=== PATIENT | male | born 1970 | race Caucasian/White ===

== ENCOUNTER 2024-01-10 12:48 | Inpatient (IN) ==
--- NOTE | 2024-01-10 13:01 | Emergency Department Note ---
Impression & Plan Complete heart block, Abnormal ECG, Hyperbilirubinemia ED Provider Note NAME: GISELE LOPEZ AGE: 53 SEX: M : 1970 ARRIVES VIA: Walk-In INFORMANT: Patient, Dr. Sanchez ED PROVIDER(S): Tyrell Gilliland MD CHIEF COMPLAINT: Outpatient referral, complete heart block MEDICAL DECISION MAKING: Patient presents due to concern for complete heart block and was an outpatient referral. IV was established and blood work was obtained. P waves not corresponding to QRS complexes concerning for third-degree heart block. Patient did have pads placed as a precaution. Patient's blood work shows a normal white count H&H and platelet count. The patient's kidney function is unremarkable. Bilirubin of 1.7. No priors for comparison. TSH is normal. Lyme negative. I did inform the patient the findings I did speak with Dr. Dela Cruz with [facility] as well as with Cecilia Reyes PA-C with Dr. Rigo Fabian inpatient medicine service. Patient was admitted Discussion w/ other healthcare providers: Dr. Laura Fabian cardiology Dr. Jose De Jesus [facility] cardiology Shamar Reyes PA-C and Dr. Rigo [facility]ian inpatient service Prior /Outside records reviewed: None Differential diagnosis: Benign positional vertigo, dehydration, hypovolemia, anemia, infection, hypoglycemia, electrolyte abnormalities, arrhythmia, tox among others were considered. Diagnostics, as interpreted by me: ECG: Likely third-degree heart block, P waves not corresponding to each QRS complex, ventricular rate of 48 with a normal axis no ST elevations T wave inversion in lead III. Cardiac monitoring: An order was placed for continuous cardiac monitoring. The monitor shows a rate of 45 with regular rhythm. Patient was placed on pulse oximetry Medical decision rules: None Imaging studies: I informally interpreted the patient's chest x-ray does not show obvious pneumonia or pneumothorax with formal report to follow. HPI: Patient presents due to concern for complete heart block. The patient reportedly had an outpatient EKG that was completed in the preoperative setting. This was read by Dr. Sanchez and then called the patient and advised him to present to the emergency department. The patient does not take any medications and denies any symptoms. States that he does workout regularly and does not have any issues of lightheadedness dizziness or palpitations. He does report that his father did have a pacemaker placed at an older age. He denies any recent tick bites or formal diagnosis of Lyme's but states that he used to run outdoors a fair amount but is not done that in about 2 years time to where he found any sort of ticks on him. Patient denies any chest pains or shortness of breath no nausea vomiting. Social alcohol use but denies any tobacco or drug use. Dr. Rangel did make a phone call to me to make me aware of the abnormal outpatient EKG and that he was referring him to the emergency department. PAST MEDICAL HISTORY: See Below PAST SURGICAL HISTORY: See Below SOCIAL HISTORY: See Below HOME MEDICATIONS: See Below ALLERGIES: See Below VITALS: See Below PHYSICAL EXAMINATION: GENERAL: NAD, non-toxic. EYE EXAM: Normal conjunctiva. PERRL, no anisocoria and EOM's grossly intact w/o pain. OROPHARYNX: Moist mucus membranes, grossly normal dentition. NECK: Trachea midline, no stridor. LUNGS: Clear to auscultation. Normal chest wall mechanics. HEART: Bradycardic, no MRG. ABDOMEN: Abdomen soft, non-tender, no masses, no rebound or guarding. BACK: No CVA TTP. SKIN: No rashes and no bruising. UPPER EXTREMITIES: Upper extremities are grossly normal. LOWER EXTREMITIES: Grossly normal, no edema. NEURO EXAM: A&O x3, cranial nerves II-XII grossly intact, normal speech, moves all 4 extremities. Past Med/Surg History Problem List (Updated 01/10/24 @ 19:03 by Tyrell Gilliland MD) Hyperbilirubinemia (Acute) Abnormal ECG (Acute) Appendicolith Complete heart block (Acute) Surgical History Hx of colonoscopy Hx of vasectomy Social History Smoking Status: Never smoker Second Hand Exposure: No; Do You Dip or Chew Tobacco: No; Tobacco Cessation Education Requested by Patient: No Hx Alcohol Use: No Hx Substance Use: No Preferred Language: [place] [employer] Team Member Required: No Beliefs That Will Affect Care: None Current Living Situation: Spouse Current Living Situation Comment: at home with Other Information That Helps Us Care for You: No Feels Safe at Home: Yes Safety Concerns: Feels Safe At This Time Assistive Devices: None Allergies Allergies Allergy/AdvReac Type Severity Reaction Status Date / Time No Known Allergies Allergy Unknown Verified 09/10/03 16:34 Home Meds Home Medications Medication Instructions Recorded Confirmed Fish Oil 1 cap PO DIRECTED 01/10/24 01/10/24 Results & Data (ED) Vital Signs Vital Signs - 24 hr 01/10/24 12:57 01/10/24 13:12 01/10/24 13:32 Temperature 36.5 C Temperature Source Temporal Artery Scan Pulse Rate 56 L 50 L Pulse Rate [Apical] Respiratory Rate 20 Blood Pressure 161/97 H Blood Pressure [Right Arm] Blood Pressure Mean 118 Blood Pressure Mean [Right Arm] Pulse Oximetry 93 98 Oxygen Delivery Method Room Air Room Air Sepsis Recent Fever Within 48 Hours No Sepsis New/Unexplained Change in Mental Status N/A Sepsis Action Taken by Nursing No Action Required 01/10/24 13:38 Temperature Temperature Source Pulse Rate Pulse Rate [Apical] 51 L Respiratory Rate 22 Blood Pressure Blood Pressure [Right Arm] 134/98 Blood Pressure Mean Blood Pressure Mean [Right Arm] 110 Pulse Oximetry 96 Oxygen Delivery Method Room Air Sepsis Recent Fever Within 48 Hours Sepsis New/Unexplained Change in Mental Status Sepsis Action Taken by Detention Medications Current Medication List: was personally reviewed by me Laboratory Data Attestation: I reviewed the patient's lab results. 01/10/24 13:11 01/10/24 13:11 Lab Results 01/10/24 Range/Units 13:11 WBC 8.94 (4.8-10.8) K/ul RBC 4.90 (4.70-6.10) M/uL Hgb 16.6 (14.0-18.0) g/dl Hct 46.8 (42.0-52.0) % MCV 95.5 (80.0-100.0) fL MCH 33.9 (25.0-34.0) pg MCHC 35.5 (32.0-36.0) g/dL RDW Std Deviation 43.0 (36.4-46.3) fL RDW Coeff of Paulette 12.3 (11.5-14.5) % Plt Count 267 (130-400) K/uL MPV 10.3 (9.4-12.4) fL Immature Gran % (Auto) 0.2 % Neut % (Auto) 72.5 % Lymph % (Auto) 12.3 % [place] % (Auto) 10.7 % Eos % (Auto) 3.5 % Baso % (Auto) 0.8 % Neut # (Auto) 6.48 (1.40-6.50) K/uL Lymph # (Auto) 1.10 L (1.20-3.40) K/uL [place] # (Auto) 0.96 H (0.11-0.59) K/uL Eos # (Auto) 0.31 (0.00-0.50) K/uL Baso # (Auto) 0.07 (0.00-0.20) K/uL Immature Gran # (Auto) 0.02 (0.01-0.20) K/uL PT 11.2 (9.0-12.0) Seconds INR 1.0 (0.9-1.1) APTT 27 (21-31) Seconds PTT Ratio 1.0 Sodium 138 (136-145) mmol/L Potassium 4.2 (3.5-5.1) mmol/L Chloride 101 (98-107) mmol/L Carbon Dioxide 29 (21-32) mmol/L Anion Gap 8 (3-11) BUN 15 (6-23) mg/dl Creatinine 1.16 (0.6-1.4) mg/dl Est Cr Clr Drug Dosing 88.0 ml/min eGFR 75.31 BUN/Creatinine Ratio 12.9 (10-20) Glucose 115 H (70-99(Fasting)) mg/dl Calcium 9.6 (8.6-10.3) mg/dl Magnesium 1.7 (1.7-2.4) mg/dl Total Bilirubin 1.7 H (0.2-1.0) mg/dl AST 22 (13-39) U/L ALT 19 (7-52) U/L Alkaline Phosphatase 52 (34-104) U/L Troponin I High Sens 12.6 (0-20) pg/ml Total Protein 6.9 (6.0-8.3) gm/dl Albumin 4.3 (3.4-5.0) gm/dl Globulin 2.6 (2.5-4.0) gm/dl Albumin/Globulin Ratio 1.7 (0.9-2) TSH 1.645 (0.300-4.500) uIu/ml Lyme Disease Screen Negative (Negative) Imaging Data Radiologist's Impression: Chest X-Ray 01/10/24 13:01 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 No pneumothorax, pleural effusion or lobar airspace consolidation. No overt pulmonary edema. IMPRESSION: Cardiomegaly without acute process of the chest. ACT 112: Negative or not required by law. The above report was generated using voice recognition software. It may contain grammatical, syntax or spelling errors. Electronically signed by: Ray Solo M.D. 01/10/2024 1:16 PM Discharge Plan Visit Data Chief Complaint: Abnormal Labs/Diagnostic Testing Stated Complaint: ABN EKG, ED Provider: Tyrell Gilliland Discharge Problem: Complete heart block, Abnormal ECG, Hyperbilirubinemia Patient Disposition: Admitted As Inpatient Discharge Instructions Interventions: ED Discharge Assessment Last Done: 01/10/24 15:04
--- NOTE | 2024-01-10 13:18 | XRay Report ---
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 No pneumothorax, pleural effusion or lobar airspace consolidat ion. No overt pulmonary edema. IMPRESSION: Cardiomegaly without acute process of the chest. ACT 112: Negative or not required by law. The above report was generated using voice recognition software. It may contain grammatical, syntax o r spelling errors. Electronically signed by: Ray Solo M.D. 01/10/2024 1:16 PM
[2024-01-10 13:38] LABS: Basophils # (auto) 0.07 K/uL (0.00-0.20); Basophils % (auto) 0.8 %; Eosinophils # (auto) 0.31 K/uL (0.00-0.50); Eosinophils % (auto) 3.5 %; Hematocrit (blood only) 46.8 % (42.0-52.0); Hemoglobin 16.6 g/dl (14.0-18.0); Immature Granulocytes # (auto) 0.02 K/uL (0.01-0.20); Immature Granulocytes % (auto) 0.2 %; Lymphocytes % (auto) 12.3 %; Mean Corpuscular Hemoglobin 33.9 pg (25.0-34.0); Mean Corpuscular Hgb Conc 35.5 g/dL (32.0-36.0); Mean Corpuscular Volume 95.5 fL (80.0-100.0); Mean Platelet Volume 10.3 fL (9.4-12.4); Monocytes # (auto) 0.96 K/uL (0.11-0.59); Monocytes % (auto) 10.7 %; Neutrophils # (auto) 6.48 K/uL (1.40-6.50); Neutrophils % (auto) 72.5 %; Platelet Count 267 K/uL (130-400); RDW Coefficient of Variation 12.3 % (11.5-14.5); White Blood Count 8.94 K/ul (4.8-10.8)
[2024-01-10 14:02] LABS: Albumin Globulin Ratio 1.7 (0.9-2); Albumin Level 4.3 gm/dl (3.4-5.0); BUN Creatinine Ratio 12.9 (10-20); Bilirubin,Total 1.7 mg/dl (0.2-1.0); Calcium 9.6 mg/dl (8.6-10.3); Globulin 2.6 gm/dl (2.5-4.0); Magnesium 1.7 mg/dl (1.7-2.4); Potassium 4.2 mmol/L (3.5-5.1); Total Protein 6.9 gm/dl (6.0-8.3)
[2024-01-10 14:05] LABS: Troponin I High Sensitivity 12.6 pg/ml (0-20)
[2024-01-10 14:06] LABS: Partial Thromboplastin Time 27 Seconds (21-31); Prothrombin Time 11.2 Seconds (9.0-12.0)
--- NOTE | 2024-01-10 14:07 | Cardiology Consultation ---
Date of Consultation January 10, 2024 Assessment & Plan (1) Complete heart block: Plan Patient is a 53-year-old male who presented routinely for EKG prior to planned surgery. Study demonstrated third-degree AV block with complete A-V dissociation. Left ventricular escape rhythm with left bundle branch block configuration at 45 to 50 bpm Discussed findings in detail with patient Echocardiogram pending Will likely require dual-chamber pacemaker Electrophysiology contacted History of Present Illness Reason for Consultation: Third-degree heart block, left bundle branch block Requesting Physician: Dr. Sierra History of Present Illness Patient is a 53-year-old male without prior cardiac history. Generally healthy. Only recent complaints is right abdominal and flank pain with appendicolith on CT scan Physically active with good exercise capacity and tolerance. Patient presented today for routine EKG prior to planned appendectomy Study demonstrated sinus rhythm with third-degree AV block with ventricular escape rhythm and left bundle branch block pattern, rate 54 bpm Patient was referred to the emergency room presenting asymptomatic. No history of dizziness lightheadedness syncope or near syncope. No chest pains or shortness of breath. No history of autoimmune or pulmonary disease. Prior tick exposures but Lyme screen initially negative. No recent fevers chills infections. No bleeding difficulties. Appetite and weight are stable. Allergies Allergy/AdvReac Type Severity Reaction Status Date / Time No Known Allergies Allergy Unknown Verified 09/10/03 16:34 Home Medications Medication Instructions Recorded Confirmed Type Fish Oil 1 cap PO DIRECTED 01/10/24 01/10/24 History Patient History Surgical History Hx of colonoscopy Hx of vasectomy Social History Smoking Status: Never smoker Preferred Language: [place] Feels Safe at Home: Yes Review of Systems Review of Systems: All systems reviewed & are unremarkable except as noted in HPI & below Results & Data Vital Signs (Past 12 Hours) Vital Signs Temp Pulse Pulse Resp BP BP Pulse Ox 01/10/24 13:38 51 L 22 134/98 96 01/10/24 13:32 50 L 01/10/24 13:12 98 01/10/24 12:57 36.5 C 56 L 20 161/97 H 93 O2 Del Method 01/10/24 13:38 Room Air 01/10/24 13:32 01/10/24 13:12 Room Air 01/10/24 12:57 Room Air Laboratory Results Laboratory Results - last 24 hr 01/10/24 13:11 WBC 8.94 RBC 4.90 Hgb 16.6 Hct 46.8 MCV 95.5 MCH 33.9 MCHC 35.5 RDW Std Deviation 43.0 RDW Coeff of Paulette 12.3 Plt Count 267 MPV 10.3 Immature Gran % (Auto) 0.2 Neut % (Auto) 72.5 Lymph % (Auto) 12.3 [place] % (Auto) 10.7 Eos % (Auto) 3.5 Baso % (Auto) 0.8 Neut # (Auto) 6.48 Lymph # (Auto) 1.10 L [place] # (Auto) 0.96 H Eos # (Auto) 0.31 Baso # (Auto) 0.07 Immature Gran # (Auto) 0.02 PT 11.2 INR 1.0 APTT 27 PTT Ratio 1.0 Sodium 138 Potassium 4.2 Chloride 101 Carbon Dioxide 29 Anion Gap 8 BUN 15 Creatinine 1.16 Est Cr Clr Drug Dosing 88.0 eGFR 75.31 BUN/Creatinine Ratio 12.9 Glucose 115 H Calcium 9.6 Magnesium 1.7 Total Bilirubin 1.7 H AST 22 ALT 19 Alkaline Phosphatase 52 Troponin I High Sens 12.6 Total Protein 6.9 Albumin 4.3 Globulin 2.6 Albumin/Globulin Ratio 1.7 TSH 1.645 Lyme Disease Screen Negative
--- NOTE | 2024-01-10 14:11 | History & Physical Report ---
Date of Service January 10, 2024 Assessment & Plan (1) Complete heart block: Plan: -Admit to telemetry -Consult cardiology for possible further workup of complete heart block with reversible causes versus needs for pacemaker insertion -Lyme's testing to be done -Labs reviewed, no acute abnormalities -BP is stable, heart rate noted to be in the 50s, - Continue bedside pacer pads (2) Appendicolith: Plan: -History of such, scheduled with outpatient general surgery, Dr. Estrada for future appendectomy on 01/23. -No acute abdominal complaints DVT ppx: scds, ambulatory Lines: PIV x 2 FEN/GI :Heart healthy CODE: Full Dispo: From home, likely to remain in the hospital x 1-2 days A total of 75 minutes were spent with greater than 50% of that time face to face with the patient, personally reviewing all current laboratories, imaging studies, past medication reconciliation, outpatient chart review, and discussion with specialists to collaborate care for the patient with attending. Please see attending documentation for corrections and/or additions. History of Present Illness Chief Complaint: EKG abnormal Primary Care Provider: Sivan Ceballos DO This is a 53-year-old male with PMHx of intermittent abdominal pain worked up to be appendicolith and planned for future appendectomy with Dr. Estrada as outpatient, and was undergoing routine preop screening which included an EKG. Patient is found to have complete heart block with outpatient EKG and was referred to the hospital. Patient cannot recall recent tick bite or history of known Lyme's disease to have caused such. His heart rate is found to be in the low 50s in the ER here today. Patient states that he feels completely normal at this point, denies any cardiac symptoms, shortness of breath, no lightheadedness or dizziness. He is a very physically active person, participates in exercise almost once daily, strength training, stationary bike, etc. He presents after being informed via phone call to proceed to the ER due to EKG abnormality. The only medication the patient takes is a fish oil supplement. Patient denies any alcohol use except for occasionally on a weekend, no smoking or illicit drug use. He denies any recent known tick bites. Allergies Allergy/AdvReac Type Severity Reaction Status Date / Time No Known Allergies Allergy Unknown Verified 09/10/03 16:34 Home Medications Medication Instructions Recorded Confirmed Type Fish Oil 1 cap PO DIRECTED 01/10/24 01/10/24 History Past Med/Surg History Problem List Appendicolith Complete heart block Surgical History Hx of colonoscopy Hx of vasectomy Social History Smoking Status: Never smoker Second Hand Exposure: No; Do You Dip or Chew Tobacco: No; Tobacco Cessation Education Requested by Patient: No Hx Alcohol Use: No Hx Substance Use: No Preferred Language: Citizen Of [place] Pharmaceutical Laboratory Technician Required: No Beliefs That Will Affect Care: None Current Living Situation: Spouse Current Living Situation Comment: at home with Other Information That Helps Us Care for You: No Feels Safe at Home: Yes Safety Concerns: Feels Safe At This Time Assistive Devices: None Review of Systems Review of Systems: Constitutional: No fever, sweats or chills Eyes: No diplopia, no worsening or blurred vision ENT: normal hearing, no trouble swallowing Respiratory: No cough, sputum, dyspnea at rest or on exertion Cardiovascular: No chest pain, tightness or palpitations Abdomen: No pain, nausea, vomiting, diarrhea or constipation Musculoskeletal: No joint pain, calf pain, swelling Neurologic: No weakness, numbness/tingling, or balance problems Psychiatric: No anxiety or depression Skin: No rash or itch Physical Exam Physical Exam: General: awake, alert, no apparent distress, healthy, physically fit appearing white male Head: Normocephalic, atraumatic ENT: PERRL, EOMI, no pharyngeal exudate, mucous membranes moist Chest: Clear to auscultation, on room air, no adventitious breath sounds Cardiac: Bradycardic, heart rate 51, no murmur, no JVD, normal peripheral pulses, good capillary refill Abdominal: NABS x 4 quadrants, soft, nondistended, nontender to palpation, no rebound or guarding Extremities: Normal inspection, no peripheral edema or erythema, calfs nontender to palpation Psych: Normal mood and affect Neuro: AAO x 3, strength intact bilaterally and rated 5/5, no motor deficits, speech is clear, no peripheral sensory deficits Results & Data Results & Data Vital Signs (Past 12 Hours) Vital Signs Temp Pulse Pulse Resp BP BP Pulse Ox 01/10/24 13:38 51 L 22 134/98 96 01/10/24 13:32 50 L 01/10/24 13:12 98 01/10/24 12:57 36.5 C 56 L 20 161/97 H 93 O2 Del Method 01/10/24 13:38 Room Air 01/10/24 13:32 01/10/24 13:12 Room Air 01/10/24 12:57 Room Air Laboratory Results 01/10/24 13:11 WBC 8.94 RBC 4.90 Hgb 16.6 Hct 46.8 MCV 95.5 MCH 33.9 MCHC 35.5 RDW Std Deviation 43.0 RDW Coeff of Paulette 12.3 Plt Count 267 MPV 10.3 Immature Gran % (Auto) 0.2 Neut % (Auto) 72.5 Lymph % (Auto) 12.3 [place] % (Auto) 10.7 Eos % (Auto) 3.5 Baso % (Auto) 0.8 Neut # (Auto) 6.48 Lymph # (Auto) 1.10 L [place] # (Auto) 0.96 H Eos # (Auto) 0.31 Baso # (Auto) 0.07 Immature Gran # (Auto) 0.02 PT 11.2 INR 1.0 APTT 27 PTT Ratio 1.0 Sodium 138 Potassium 4.2 Chloride 101 Carbon Dioxide 29 Anion Gap 8 BUN 15 Creatinine 1.16 Est Cr Clr Drug Dosing 88.0 eGFR 75.31 BUN/Creatinine Ratio 12.9 Glucose 115 H Calcium 9.6 Magnesium 1.7 Total Bilirubin 1.7 H AST 22 ALT 19 Alkaline Phosphatase 52 Troponin I High Sens 12.6 Total Protein 6.9 Albumin 4.3 Globulin 2.6 Albumin/Globulin Ratio 1.7 TSH 1.645 Diagnostic Findings Chest X-Ray 01/10/24 13:01 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 No pneumothorax, pleural effusion or lobar airspace consolidation. No overt pulmonary edema. IMPRESSION: Cardiomegaly without acute process of the chest. ACT 112: Negative or not required by law. The above report was generated using voice recognition software. It may contain grammatical, syntax or spelling errors. Electronically signed by: Ray Solo M.D. 01/10/2024 1:16 PM Code Status & VTE Plan Code Status Full code Supervising Physician Co-Signing Physician Notes 53-year-old male with PMH of appendicolith and plan for future appendectomy was getting outpatient evaluation and noted to have third-degree heart block in the EKG and was referred to the ED for further evaluation. Patient with no cardiac symptoms, family history not significant for cardiac interventions or diseases. Patient continues to be in third-degree heart block in the ED. Discussed with cardiology, plan for pacemaker placement. Labs and imaging fairly WNL. EKG without any heart block. Troponin negative. Monitor replete electrolytes, continue telemetry monitoring. On exam GENERAL: Alert and oriented x3. NAD, on RA. HEENT: No pallor, no icterus. Pupils equal, round and reactive to light. Oral mucosa moist. NECK: No JVD, no neck masses. HEART: S1 and S2 heard. Regular rate and rhythm. No murmur, no gallop. RESPIRATORY SYSTEM: Normal AP diameter. No accessory muscle use. No wheezing, no crackles. ABDOMEN: Soft, bowel sounds present, nontender, no distention. CENTRAL NERVOUS SYSTEM: No facial droop. Speech is clear. Obeys simple commands. Moves extremities. EXTREMITIES: No edema, no erythema seen. I have seen and examined the patient and have discussed the case with the provider above. I agree with the assessment and plan as stated. Time spent: 25 min.
[2024-01-10 14:13] LABS: Thyroid Stimulating Hormone 1.645 uIu/ml (0.300-4.500)
--- OUTSIDE RECORDS SUMMARY | 2024-01-10 21:32 | External Medical Summary | Summary of Care ---
Author Name Unknown Organization [facility] Address [address] [place] [address] Phone [phone] Care Team Providers Care Crime Analyst Name Role Phone Tucker Sivan Lizette TATE Primary Care Provider [phone] Reason for Visit * Auth/Cert Specialty Diagnoses / Procedures Referred By Tati t Referred To Contact Diagnoses Lumbar radiculopathy Lumbar radiculopathy [M54.16] Procedures INJECT DX/THER SUBSTANCE INTERLAMINAR LUMBAR/SACRAL W IMAGE GUIDE INJECTION SPINE LUMBAR OR SACRAL Silvana Morrissey MD [address] [place] [address] [address] [place] [address] [facility] [place] [address] Referral ID Status Reason Start Date Expiration Date Visits Re quested Visits Authorized [id number] Encounter Details Date Type Department Care Team (Late st Contact Info) Description 11/19/2023 10:25 AM EDT - 11/19/2023 11:33 AM EDT Hospital Encounter OR [facility], Operating Room [facility] [address] [facility] [place] [address] Silvana Morrissey MD [address] [place] [address] Discharge Disposition: Home - Self Care Allergies No known active allergiesdocumented as of this encounter (statuses as of 11/19/2023) Medications Medication Sig Dispensed Refills Start Date End Date Status Fish Oil 360 MG Oral Capsule Take by mouth. Active Triamcinolone Acetonide 0.1 % External Cream (Aristocort)Indication s:Pruritus Apply thin layer to arms, legs, chest, back twice daily as needed for itch 80 g 5 09/21/2023 Active documented as of this encounter (statuses as of 11/19/2023) Active Problems Problem Noted Date Diagnosed Date Onychomycosis 05/19/2022 ADVANCE DIRECTIVE INFORMATION 07/17/2005 Overview: Yes-advised to bring copy to be scanned into EMR documented as of this encounter (statuses as of 11/19/2023) Resolved Problems Problem Noted Date Diagnosed Date Resolved Date Acute sinusitis 08/18/2012 06/26/2014 documented as of this encounter (statuses as of 11/19/2023) Immunizations Name Administration Dates Next Due COVID-19 mRNA, LNP-s, No Pre serve, 2-Dose Series ([employer]) 01/15/2021,05/02/2020,04/11/2020 HEP A - Hepatitis A (Adult > 18 yrs) 08/31/2012 Seasonal Influenza, PF, 6 M & above, IM , (FluLaval or Fluzone) 11/23/2021,12/04/2020 TDAP (age 10 and older)(Boostrix) 05/31/2012 Zoster Vaccine Recombinant (Shingrix) 02/11/2021 ,12/04/2020 documented as of this encounter Social History Tobacco Use Types Packs/Day Years Used Date Smoking Tobacco: Never Smokeless Tobacco: Never Alcohol Use Standard Drinks/Week Comments Yes 0 (1 standard drink = 0.6 oz pur e alcohol) rare social PHQ-2 Answer Date Recorded PHQ-2 Score -1 01/05/2018 Hunger Vital Sign Answer Date Recorded Within the past 12 months, y ou worried that your food would run out before you got the money to buy more. Never true 05/30/19 24 Within the past 12 months, t he food you bought just didn't last and you didn't have money to get more. Never true 05/30/2023 Childcare Answer Date Recorded Do you feel overwhelmed with taking care of a child, family member or friend? No 05/30/2023 Does your family need help f inding childcare? (Household - for ages 0-17 years) Not on file 05/30/2023 Clothing Answer Date Recorded Have you been unable to get clothing when it was really needed? No 05/30/2023 Is your family able to get c lothes or diapers when needed? (Household - for ages 0-17 years) Not on file 05/30/2023 Personal Safety Answer Date Recorded Do you feel unsafe or have concerns for your saf ety? No 05/30/2023 Do you have concerns for you r family's safety? (Household - for ages 0-17 years) Not on file 05/30/2023 Utilities Answer Date Recorded Do you have trouble paying y our heating, water, or electric bill? No 05/30/2023 Is your family able to pay t he heat, water, or electric bill? (Household - for ages 0-17 years) Not on file 05/30/2023 Does your family have access to good internet? (Household - for ages 0-17 years) Not on file 05/30/2023 Employment Status Answer Date Recorded Are you unemployed or without regular income? No 05/30/2023 Does the [facility] have a [facility] source [facility] income? (Household - for ages 0-17 years) Not on file 05/30/2023 Social Connections Answer Date Recorded How often do you feel lonely or isolated from th ose around you? Never 05/30/2023 Financial Resource Strain Answer Date R ecorded Do you have any trouble payi ng for your medications, or do you think you might in the future? No 05/30/2023 Does your family have troubl e paying for medicine? (Household - for ages 0-17 years) Not on file 05/30/2023 Transportation Needs Answer Date Record ed READ ONLY Do you have troubl e getting a ride to medical visits or work? Never True 05/30/2023 Does your family have a hard time getting a ride to doctors visits? (Household - for ages 0-17 years) Not on file 05/30/2023 Has lack of transportation k ept you from medical appointments, meetings, work, or from getting things needed for daily living? Check all that apply. (Adult - for ages 18 years and over) Not on file 05/30/2023 Do you (or your family) have trouble finding or paying for a ride (transportation)? (Household - for ages 0-17 years) Not on file 05/30/2023 Housing Stability Answer Date Recorded Do you currently live in a s helter or have no steady place to sleep at night? No 05/30/2023 READ ONLY Do you think you a re at risk of becoming homeless? No 05/30/2023 Does your family worry about paying for your home or becoming homeless? (Household - for ages 0-17 years) Not on file 0 05/30/2023 Are you homeless or worried that you might be in the future? (Adult - for ages 18 years and over) Not on file Are you (or your family) atul eless or worried that you might be in the future? (Household - for ages 0-17 years) Not on file Food Insecurity Answer Date Recorded Do you need food for this week? No 05/30/2023 Are you able to get enough f ood for your family? (Household - for ages 0-17 years) Not on file 05/30/2023 Does your family need food t his week? (Household - for ages 0-17 years) Not on file 05/30/2023 Do you always have enough fo od for your family? (Household - for ages 0-17 years) Not on file 05/30/2023 Sex and Gender Information Value Date Recorded Sex Assigned at Male 05/17/2022 2:35 PM EDT Gender Identity Male 05/17/2022 2:35 PM EDT Sexual Orientation Straight 05/17/2022 2: 35 PM EDT Job Start Date Occupation Industry Not on file Not on file Not on file documented as of this encounter Last Filed Vital Signs Vital Sign Reading Time Taken Comments Blood Pressure 157/96 11/19/2023 11:30 AM EDT Pulse 51 11/19/2023 11:30 AM EDT Temperature 36.3 C (97.4 F) 11/19/2023 10:58 AM E DT Respiratory Rate 15 11/19/2023 11:30 AM EDT Oxygen Saturation 98% 11/19/2023 11:30 AM EDT Inhaled Oxygen Concentration - - Weight - - Height - - Body Mass Index - - documented in this encounter Discharge Instructions * Discharge Instr - AVS* Silvana Morrissey MD - 11/19/2023 11:08 AM EDT Discharge Date: 11/19/2023 Check your Patient Education Brochure for further information. If you have any further questions call your physician at [phone]. The information below provides you with the instructions and the list of medications you need to betaking following discharge from the hospital. If you have any questions, please ask before leaving.If you have questions after you leave, you can reach us at the number above. You had the following procedure performed: Epidural Steroid Injection Wound Care: You may shower normally, but be sure to keep the injection site clean and dry. No soaking in a bathfor 48 hours. Activity: You may resume your regular diet as tolerated. Return to normal activities slowly as tolerated. Walking is very important for healing and your rehabilitation. Initially, you should walk at least two to three times daily. Then slowly and gradually increase your distance as your tolerance for physical activity increases. You may go up and down stairs carefully. You may resume home medications. If you received sedation, for the next 24 hours, you should NOT: Drive a vehicle, operate power machinery or power equipment Drink alcoholic beverages, including beer Make important decisions, such as signing contracts, etc. Notify physician for: Temperature greater than 101 degrees F. Increased pain. Calf swelling or tenderness. Drainage or redness of the incision. Chest pain or shortness of breath (and go to the Emergency Department) Date you may return to work or school: tomorrow documented in this encounter H&P Notes * Silvana Morrissey MD - 11/19/2023 11:06 AM EDT Otilio Gross : 1970 Today's date: 11/19/23 HPI: Otilio Gross is a 53 year old male who complains of low back pain that radiates to posterior thigh and calf, at times can radiate into foot. Intermittent into L posterior thigh. This pain startedone year ago while training for half iron [employer], no distinct preceding injury. Increased pain in the past four months, now constant, no injury. Followed with PCP for this, placed referral to our clinic. Temporary relief with oral steroid taper. No recent physical therapy or healthcare account manager. Massagetherapy x's one without significant benefit. Symptoms occur daily. Describes pain as "shooting, sharp." Pain is dependent on activity, rated 2/10 at least, 5/10 on average, increases to 10/10 at worst. Aggravating factors include: running, lumbar flexion, ascending stairs/hill. Alleviating factors include: oral steroid. Admits associated paresthesia R foot, all digits - rather sporadically in L foot. Denies weakness B LE. Denies bowel or bladder incontinence. Denies hx spine surgery or injections. Would like to get back to running/training - unfortunately pain is limiting this. Does continue home exercise program with stationary bike. Reviewed L spine MRI 08/05/23 - minimal listhesis L3/4 with moderate central stenosis and subarticular narrowing, mild disc bulge and facet arthropathy L4/5, no acute compression changes. Current medications used for pain: advil, aspercreme. Past medications used for pain: oral steroid, lidocaine patch. Anticoagulation therapy: no Diabetic: no PAST MEDICAL HISTORY: Past Medical History: Diagnosis Date Spermatocele R sided 1 cm Past Medical History - Pertinent Findings: (-) clotting disorder PAST SURGICAL HISTORY: Past Surgical History: Procedure Laterality Date COLONOSCOPY, DIAGNOSTIC (RECTUM) 05/19/2021 diverticulosis, repeat 10 yrs / COLONOSCOPY FLEXIBLE PROXIMAL DIAGNOSTIC performed by Carolee Monk DO at ENDOSCOPY [facility] FOOT/TOE SURGERY [facility] 03/01/2001 Achilles tendonitis and bony revision L foot VASECTOMY FAMILY HISTORY: Family History Problem Relation Name Age of Onset Other (alcoholism) Father No Past Hx Grandmother (Maternal) 95 and good health Cancer Grandmother (Paternal) breast Family History - Pertinent Findings: (-) clotting disorder SOCIAL HISTORY: Social History Tobacco Use Smoking status: Never Smokeless tobacco: Never Substance Use Topics Alcohol use: Yes Comment: rare social Drug use: No CURRENT MEDICATIONS: Note that discontinued and completed medications (per the MAR) continue to display for 24 hours. Ordered medications to be given in the future also display. Current Outpatient Medications Medication Sig Dispense Refill predniSONE 20 MG Oral Tablet (Deltasone) Take 3 tabs for 3 days, 2 tabs for 3 days, 1 tab for 3 days, 1/2 tab for 3 days (Patient not taking: Reported on 09/09/2023) 20 Tablet 0 No current facility-administered medications for this visit. ALLERGIES: Patient has no known allergies. ROS: Constitutional: Negative for fatigue, fever, appetite change, unexplained weight loss. ENT: Negative for hearing loss, sore throat. Respiratory: Negative for cough, shortness of breath, dyspnea. Musculoskeletal: Negative for neck, mid-back pain. + low back and R LE pain - see HPI Neurological: Negative for headaches, seizures. + paresthesias B feet - see HPI Genitourinary: Negative for dysuria, urinary frequency, hematuria. Hematologic/ Lymphatic: Negative for easy bleeding, bruising, lymphadenopathy. Gastrointestinal: Negative for abdominal pain, nausea, vomiting, constipation, diarrhea. Cardiovascular: Negative for chest pain, palpitations, ankle swelling, orthopnea. PHYSICAL EXAMINATION: Most Recent Vital Signs: There were no vitals filed for this visit. General Appearance: Patient appears to be about stated age, pleasant and cooperative with normal affect. HEENT: head normocephalic and pupils equal round and reactive to light and accommodation, EOMI Chest: No gross abnormality. Nonlabored breathing. Lumbar Spine: Normal lumbar lordatic curvature is present. Skin is intact without gross abnormalities. No masses palpable. Midline and B paravertebral musculature nontender. B sacroiliac joint nontender. No evidence of myofascial trigger points. Full active ROM with flexion and extension of the lumbar spine. Increased pain with lumbar extension. Lower Extremity Strength: Hip Flexion 5/5 bilaterally. Hip Abductor 5/5 bilaterally. Hip Adductor 5/5 bilaterally. Extensor Hallicus Longus 5/5 bilaterally. Deep Tendon Reflex: Patellar: 2/4 bilaterally. Achilles: 2/4 bilaterally. Low Back Provocative Testing: VICKY test: negative bilaterally. Straight Leg Raise Test: positive R, negative L. Lumbar Facet Loading: mildly positive bilaterally. Sensation: Dermatomal sensation not formally tested. Grossly normal and symmetric unless otherwise specified. Gait: Intact, no sign of ataxia. Ambulates without assistance. IMAGING: MRI LUMBAR SPINE WITHOUT CONTRAST 08/05/23 The retroperitoneal tissues are unremarkable in appearance. The conus terminates at the L1 level. Signal in the distal cord is normal. There is grade 1 anterolisthesis of L3 on L4. Alignment is otherwise anatomic. Mild disc space narrowing at the L3-4 level is noted. The remaining disc space heights are maintained and on the STIR imaging there are no focal marrow signal abnormalities. At L1-2 and L2-3 there is no herniation or thecal sac stenosis and there is no significant foraminal compromise. At L3-4 disc bulge, facet hypertrophy, anterolisthesis, and ligamentum flavum redundancy result in moderate thecal sac narrowing and left greater than right subarticular narrowing. There is no foraminal impingement. At L4-5 there is disc bulge and facet hypertrophy causing bilateral subarticular narrowing without thecal sac stenosis. No foraminal impingement is present. At L5-S1 there is no thecal sac or foraminal compromise. IMPRESSION: Degenerative changes at L3-4 and L4-5 including moderate thecal sac narrowing at the L3-4 level andbilateral subarticular narrowing at both levels. XR L SPINE AP AND LATERAL; XR HIP UNILAT 2-3 VIEWS INCLUDING AP PELVIS 05/31/2023 2:35 pm There are 5 [id number] lumbar type vertebrae. Vertebral body height and alignment are maintained. No acute fracture or subluxation. Bone mineralization is appropriate for age. No lytic or blastic osseous lesion. Intervertebral disc spaces are preserved. Multilevel facet arthropathy. The bilateral sacroiliac joints are preserved. Mild bilateral hip osteoarthritis. IMPRESSION 1. Mild degenerative changes in the lumbar spine. 2. Mild bilateral hip osteoarthritis. ASSESSMENT: Lumbar radicular pain, R > L LE Spinal stenosis with neurogenic claudication PLAN: Right paramedian L3-4 ILESI documented in this encounter Nursing Notes * Shilpa Cuenca RN - 11/19/2023 11:29 AM EDT Patient tolerated pain injection well. Ready for discharge to home. * Marleen Gutierrez RN - 11/19/2023 11:24 AM EDT Band aid applied to area. Patient transferred to PACU 11 via wheelchair * Marleen Gutierrez RN - 11/19/2023 11:22 AM EDT Patient tolerating pain management injection well. documented in this encounter OR Notes * OR Surgeon - Silvana Morrissey MD - 11/19/2023 11:08 AM EDT Procedure Note Lumbar Interlaminar CYRUS Procedure Date: 11/19/2023 Otilio Gross Date of : 1970 Attending: Emeterio Morrissey M.D. PREOPERATIVE DIAGNOSIS: Lumbar radicular pain POSTOPERATIVE DIAGNOSIS: SAME PROCEDURE PERFORMED: Interlaminar Epidural Steroid Injection at the L3-L4 level ESTIMATED BLOOD LOSS: None SPECIMENS AND DRAINS: None FLUOROSCOPY WAS USED. INDICATIONS FOR PROCEDURE: This is a 53 year old year old male with a clinical picture consistent with the above-mentioned diagnosis, resulting in lumbar radiculopathy. PROCEDURE AND FINDINGS: The patient was greeted in the pre procedure holding area. The risk, benefits and alternatives to the procedure were again reviewed with the patient and written informed consent was placed in the chart. Prior to the procedure a time out was completed, verifying correct patient, procedure, site, positioning, and implants and/or special equipment. The patient was taken to the procedure room and positioned prone on the fluoroscopy table. Then a materials planner film was taken to identify the correct level. The skin was prepped and draped in the usual sterile fashion. The overlying skin and subcutaneous tissue was anesthetized using a 25-guage 1-1/2 inchneedle with 1% buffered lidocaine for a total volume of 2 mls. Then a 20g, 9 cm Tuohy needle was advanced under fluorosocpic guidance using an AP, oblique and lateral views into the interlaminar space. A loss of resistance syringe was attached and loss of resistance to saline and air occurred. Then1-2 mls of Omnipaque 180mg/mL was injected under AP and confirmed adequate spread in the epidural sp mello without DSA. There was no evidence of intravascular uptake or intrathecal spread on imaging. A contralateral oblique view was also taken confirming adequate epidural spread. Then 2mls of PFNS mixed with 1mL of 10mg/mL dexamethasone was injected without incident. The needlewas flushed with a small amount of saline, re-styletted and removed. The needle insertion site was dressed appropriately. The patient was taken to the recovery room where he was monitored for a brief period of time. He tolerated the procedure well and were discharged home in stable condition with post procedural instructions. Follow-up will be in clinic. COMPLICATIONS: None documented in this encounter Plan of Treatment Upcoming Encounters Date Type Department Care Team (Late st Contact Info) Description 12/24/2023 2:00 PM EDT Scheduled Telephone Interventional Pain Center, [facility] [address] [place] [address] [facility] Nurse Phone Call Interventional Pain [facility] [address] [place] [address] Scheduled Procedures Name Priority Associated Diagnoses Date/Ti me INJECTION SPINE LUMBAR OR SACRAL Lumbar radiculopathy 11/19/2023 11:20 AM EDT COLONOSCOPY FLEXIBLE PROXIMAL DIAGNOSTIC Recall Screening for colon cancer Health Maintenance Due Date Last Done Comments HIV Screening 1985 Hepatitis C Screening 02/27/1988 Hepatitis B Vaccine (1 of 3 - 19+ 3-dose series) 1989 Cologuard 2015 Fecal Occult Blood Test 2015 Sigmoidoscopy 2015 Depression Screening 05/10/2018 05/10/2017 DTap/Tdap Vaccines (2 - Td or Tdap) 05/31/2022 05/31/2012 COVID-19 Vaccine ( - season) 2023 01/15/2021, 05/02/2020, 04/11/2020 Influenza Vaccine (FLU shot) (#1) 2023 11/23/2021, 12/04/2020, 12/04/2020 Diabetes Screening 05/21/2025 05/21/2022, 1 , 06/07/2012, Additional history exists Lipid Panel 05/22/2027 05/21/2022, 10/0 09/2020, 06/07/2012, Additional history exists Colonoscopy 05/20/2031 05/19/2021, 05/19/2021 Colorectal Cancer Screening 05/20/2031 Zoster Vaccines Completed 02/11/2021, 12/04/2020 HPV (Gardasil) Vaccine Aged Out No lo nger eligible based on patient's age to complete this topic MENINGOCOCCAL (MENACTRA/MENVEO) Aged Out No longer eligible based on patient's age to complete this topic Pneumococcal Vaccine: Pediatrics (0 to 5 Years) and At-Risk Patients (6 to 64 Years) Aged Out No longer eligible based on patient's age to complete this topic documented as of this encounter Medical Devices Not on filedocumented as of this encounter Procedures Procedure Name Priority Date/Time Associated Diagnosis Comments FLUORO INTERVENTIONAL PAIN PROCEDURE NONBILLABLE Routine 11/19/2023 11:27 AM EDT documented in this encounter Results * FLUORO INTERVENTIONAL PAIN PROCEDURE NONBILLABLE (11/19/2023 11:27 AM EDT) Narrative Scheduling, Silent - 11/19/2023 11:27 AM EDT This procedure will not be read by a Radiologist. Please see operative note. Silvana Morrissey MD RAD FLUOROSCOPY documented in this encounter Administered Medications Inactive Administered Medications - up to 3 most recent administrations Medication Order MAR Action Action Date Dose Rate Site dexAMETHasone Sodium Phosphate (Decadron) 10 MG/ML inj 8 mg 8 mg, Intramuscular, ONCE, On Wed11/19/23 at 1100, For 1 dose, PROTECT FROM LIGHT Given 11/19/2023 11:24 AM EDT 10 mg Other-Specify Iohexol (Omnipaque 240) inj 0.5 mL 0.5 mL, Injection, ONCE, On Wed11/19/23 at 1100, For 1 dose Given 11/19/2023 11:23 AM EDT 0.5 mL lidocaine 1 % inj 20 mg 20 mg (2 mL), Subcutaneous, ONCE, On Wed11/19/23 at 1100, For 1 dose Given 11/19/2023 11:22 AM EDT 3 mL Other-Specify documented in this encounter Active and Recently Administered Medications Times are shown in EDT. Scheduled Medication Order 11/17/2023 11/18/2023 11/19/2023 dexAMETHasone Sodium Phosphate (Decadron) 10 MG/ML inj 8 mg (COMPLETED) 8 mg, Intramuscular, ONCE, On Wed11/19/23 at 1100, For 1 dose, PROTECT FROM LIGHT 1124 (Given - Provid er: Marleen Gutierrez RN) Iohexol (Omnipaque 240) inj 0.5 mL (COMPLETED) 0.5 mL, Injection, ONCE, On Wed11/19/23 at 1100, For 1 dose 1123 (Given - Provid er: Marleen Gutierrez RN) lidocaine 1 % inj 20 mg (COMPLETED) 20 mg (2 mL), Subcutaneous, ONCE, On Wed11/19/23 at 1100, For 1 dose 1122 (Given - Provid er: Marleen Gutierrez RN) documented in this encounter Care Teams Crime Analyst Relationship Specialty Start Date End Date Sivan Ceballos DO [address] [place] [id number] PCP - General Family Medicine 09/09/23 documented as of this encounter
--- OUTSIDE RECORDS SUMMARY | 2024-01-10 21:32 | External Medical Summary ---
Author Name Unknown Address Unknown Organization [facility] [address] [place] [id number] Laboratory Report Ordering Provider Test Date Status PEGGY RAMESH 12/10/2023 09:15:53 Final Observation Date Value Abnormality Reference (Units ) Status Color of Urine by Auto 12/10/2023 09:15:53 Yellow Light Yellow, Yellow, Dark Yellow Final Clarity, Urine 12/10/2023 09:15:53 Clear Clear Final Glucose [Mass/volume] in Urine by Automated test strip 12/10/2023 09:15:53 Negative Negative (mg/dL) Final Bilirubin.total [Presence] in Urine by Automated test strip 12/10/2023 09:15:53 Negative Negative Final Ketones [Mass/volume] in Urine by Automated test strip 12/10/2023 09:15:53 Negative Negative (mg/dL) Final Specific gravity, Urine 12/10/2023 09:15:53 1.020 1.003-1.030 Final Hemoglobin [Presence] in Urine by Automated test strip 12/10/2023 09:15:53 Negative Negative Final pH, Urine 12/10/2023 09:15:53 5.5 5.0-7.5 (Units) Final Protein [Mass/volume] in Urine by Automated test strip 12/10/2023 09:15:53 Negative Negative (mg/dL) Final Urobilinogen [Mass/volume] in Urine by Automated test strip 12/10/2023 09:15:53 0.2 0.2, 1.0 (mg/dL) Final Nitrite [Presence] in Urine by Automated test strip 12/10/2023 09:15:53 Negative Negative Final Leukocyte esterase [Presence] in Urine by Automated test strip 12/10/2023 09:15:53 Negative Negative Final RBC, Urine 12/10/2023 09:15:53 0-2 0-2 (/HPF) Final WBC, Urine 12/10/2023 09:15:53 0-2 0-2 (/HPF) Final Bacteria [#/area] in Urine sediment by Microscopy high power field 12/10/2023 09:15:53 0-25 0-25 (/HPF) Final Performing Location [facility] [address] [facility] [id number]
--- OUTSIDE RECORDS SUMMARY | 2024-01-10 21:32 | External Medical Summary | Summary of Care ---
Author Name Unknown Organization [facility] Address [address] [place] [address] Phone [phone] Care Team Providers Care Zoo Keeper Name Role Phone Sivan Ceballos DO Primary Care Provider [phone] Reason for Referral * Precert (Within 10 days (routine)) - Pending Review Specialty Diagnoses / Procedures Referred By Tati de anda Referred To Contact Radiology Diagnoses RLQ abdominal pain Procedures CT ABD/PELVIS WO IV/ORAL CONTRAST Monserrat Rangel CRNP [address] [place] [address] Referral ID Status Reason Start Date Expiration Date V isits Requested Visits Authorized [id number] Pending Review 12/10/2023 999 [id number] Reason for Visit * Reason Comments Acute Pt here for issues w ith pain that woke him up twice in past 6-8 months with sensation he had to urinate. He does not go and then has pain in groin area that moves up and cramping and extreme pain with this sensation. It moves up into lower abdomen and then it goes away 1-2 hours later, pain lasts 2 hours. The sensation in not in bladder but at end of penis. Encounter Details Date Type Department Care Team (Late st Contact Info) Description 12/10/2023 8:40 AM EDT Office Visit Family Practice [facility] [address] [facility] [address] Monserrat Rangel CRNP [address] [place], [place] [id number] Pain in penis*; RLQ abdominal pain Allergies No known active allergiesdocumented as of this encounter (statuses as of 12/10/2023) Medications Medication Sig Dispensed Refills Start Date End Date Status Fish Oil 360 MG Oral Capsule Take by mouth. Active Triamcinolone Acetonide 0.1 % External Cream (Aristocort)Indication s:Pruritus Apply thin layer to arms, legs, chest, back twice daily as needed for itch 80 g 5 09/21/2023 Active documented as of this encounter (statuses as of 12/10/2023) Active Problems Problem Noted Date Diagnosed Date Onychomycosis 05/19/2022 ADVANCE DIRECTIVE INFORMATION 07/17/2005 Overview: Yes-advised to bring copy to be scanned into EMR documented as of this encounter (statuses as of 12/10/2023) Resolved Problems Problem Noted Date Diagnosed Date Resolved Date Acute sinusitis 08/18/2012 06/26/2014 documented as of this encounter (statuses as of 12/10/2023) Immunizations Name Administration Dates Next Due COVID-19 mRNA, LNP-s, No Pre serve, 2-Dose Series (BMEYE) 01/15/2021,05/02/2020,04/11/2020 Covid-19, Mrna, Lnp-s, Pf, B ivalent, 30 Mcg, IM, 12 yrs and above (Pfizer) 11/23/2023 HEP A - Hepatitis A (Adult > 18 yrs) 08/31/2012 Seasonal Influenza, PF, 6 M & above, IM , (FluLaval or Fluzone) 11/23/2021,12/04/2020 TDAP (age 10 and older)(Boostrix) 05/31/2012 Zoster Vaccine Recombinant (Shingrix) 02/11/2021 ,12/04/2020 documented as of this encounter Social History Tobacco Use Types Packs/Day Years Used Date Smoking Tobacco: Never Smokeless Tobacco: Never Tobacco Cessation:Counseling Given: Not Answered Alcohol Use Standard Drinks/Week Comments Yes 0 [...] No 05/30/2023 Does the household have a re gular source of income? (Household - for ages [...] Sign Reading Time Taken Comments Blood Pressure 132/88 12/10/2023 8:44 AM EDT Pulse 54 12/10/2023 8:44 AM EDT Temperature 36.4 C (97.6 F) 12/10/2023 8:44 AM ED T Respiratory Rate 16 12/10/2023 8:44 AM EDT Oxygen Saturation - - Inhaled Oxygen Concentration - - Weight 93 kg (205 lb) 12/10/2023 8:44 AM EDT Height - - Body Mass Index 27.8 05/31/2023 1:54 PM EDT documented in this encounter Progress Notes * Monserrat Rangel CRNP - 12/10/2023 8:57 AM EDT Images from the original note were not included. Follow up Family Medicine Visit History of Present Illness Otilio Gross is a very pleasant 53 year old male with PMH listed below presenting with acute. About 6 months ago, he woke up in the middle of night due to penis pain without bladder fullness. Sensation at the tip of penis suddenly progressed to severe groin/RLQ pain that moved up in abdomen/flank area. Worst pain in his life, considered to go ER. Lasted about 30 minutes to an hour. No GI syptoms. Last week, similar episode happened. He had urge to urinate but he could not. "Achy" pain all over R groin/flank/abdomen. Also had brief period of dry heaves. Walking made it feel better. He is asymptomatic today. Of note, his brother had testicle torsion at young age. 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 Social History Socioeconomic History Marital status: Spouse name: Not on file Number of children: Not on file Years of education: Not on file Highest education level: Not on file Occupational History Not on file Tobacco Use Smoking status: Never Smokeless tobacco: Never Substance and Sexual Activity Alcohol use: Yes Comment: rare social Drug use: No Sexual activity: Yes Partners: Female control/protection: Surgical Other Topics Concern Not on file Social History Narrative Not on file Social Determinants of Health Financial Resource Strain: Low Risk (05/30/2023) Financial Resource Strain Do you have any trouble paying for your medications, or do you think you might in the future? (Adult - for ages 18 years and over): No Does your family have trouble paying for medicine? (Household - for ages 0-17 years): Not on file Food Insecurity: No Food Insecurity (05/30/2023) Food Insecurity Do you need food for this week? (Adult - for ages 18 years and over): No Are you able to get enough food for your family? (Household - for ages 0-17 years): Not on file Does your family need food this week? (Household - for ages 0-17 years): Not on file Do you always have enough food for your family? (Household - for ages 0-17 years): Not on file Transportation Needs: No Transportation Needs (05/30/2023) Transportation Needs Do you have trouble getting a ride to medical visits or work? (Adult - for ages 18 years and over):Never True Does your family have a hard time getting a ride to doctors visits? (Household - for ages 0-17 years): Not on file Has lack of transportation kept you from medical appointments, meetings, work, or from getting things needed for daily living? Check all that apply. (Adult - for ages 18 years and over): Not on file Do you (or your family) have trouble finding or paying for a ride (transportation)? (Household - for ages 0-17 years): Not on file Social Connections: Socially Integrated (05/30/2023) Social Connections How often do you feel lonely or isolated from those around you? (Adult - for ages 18 years and over): Never Housing Stability: Low Risk (05/30/2023) Housing Stability Do you currently live in a chcf or have no steady place to sleep at night? (Adult - for ages 18 years and over): No Do you think you are at risk of becoming homeless? (Adult - for ages 18 years and over): No Does your family worry about paying for your home or becoming homeless? (Household - for ages 0-17 years): Not on file Are you homeless or worried that you might be in the future? (Adult - for ages 18 years and over): Not on file Are you (or your family) homeless or worried that you might be in the future? (Household - for ages0-17 years): Not on file PMH: Past Medical History: Diagnosis Date Spermatocele R sided 1 cm Past Surgical History: Procedure Laterality Date COLONOSCOPY, DIAGNOSTIC (RECTUM) 05/19/2021 diverticulosis, repeat 10 yrs / COLONOSCOPY FLEXIBLE PROXIMAL DIAGNOSTIC performed by Carolee Monk DO at ENDOSCOPY [facility] FOOT/TOE SURGERY NEC 03/01/2001 Achilles tendonitis and bony revision L foot INJECT DX/THER SUBSTANCE INTERLAMINAR LUMBAR/SACRAL W IMAGE GUIDE 11/19/2023 INJECTION SPINE LUMBAR OR SACRAL performed by Silvana Morrissey MD at OR [facility] VASECTOMY Current Outpatient Medications Medication Sig Dispense Refill Fish Oil 360 MG Oral Capsule Take by mouth. Triamcinolone Acetonide 0.1 % External Cream (Aristocort) Apply thin layer to arms, legs, chest, back twice daily as needed for itch 80 g 5 No current facility-administered medications for this visit. Review of patient's allergies indicates: No Known Allergies Most Recent Immunizations Administered Date(s) Administered COVID-19 mRNA, LNP-s, No Preserve, 2-Dose Series (BMEYE) 01/15/2021 COVID-19, MRNA-LNP, 24-25, RI, 30MCG/0.3ML, IM, 12YRS AND ABOVE (BMEYE- ComirnatSnip2Code) 11/23/2023 Covid-19, Mrna, Lnp-s, Pf, Bivalent, 30 Mcg, IM, 12 yrs and above (BMEYE) 11/23/2023 HEP A - Hepatitis A (Adult > 18 yrs) 08/31/2012 Seasonal Influenza, PF, 6 M & above, IM , (FluLaval or Fluzone) 11/23/2021 TDAP (age 10 and older)(Boostrix) 05/31/2012 Zoster Vaccine Recombinant (Shingrix) 02/11/2021 Review of Systems: Physical Exam BP 132/88 | Pulse 54 | Temp 36.4 C (97.6 F) (Tympanic) | Resp 16 | Wt 93 kg (205 lb) | BMI 27.80 kg/m | BSA 2.17 m Physical Exam Constitutional: Appearance: Normal appearance. HENT: Head: Normocephalic. Cardiovascular: Rate and Rhythm: Normal rate and regular rhythm. Pulmonary: Effort: Pulmonary effort is normal. Breath sounds: Normal breath sounds. Abdominal: General: Bowel sounds are normal. Tenderness: There is no abdominal tenderness. There is no right CVA tenderness, left CVA tendernessor rebound. Hernia: No hernia is present. Musculoskeletal: Cervical back: Neck supple. Skin: General: Skin is warm. Neurological: Mental Status: He is alert and oriented to person, place, and time. Psychiatric: Mood and Affect: Mood normal. Assessment and Plan 1. Pain in penis - URINALYSIS WITH MICROSCOPIC EXAM; Future - URINALYSIS WITH MICROSCOPIC EXAM 2. RLQ abdominal pain Episodic - 2 times past 6 months r/o kidney stone - CT ABD/PELVIS WO IV/ORAL CONTRAST Wrap-Up I have advised the patient to call our office with any worsening or new symptoms. I spent a total of 30-39 minutes (exact time 30 mins) on the date of service in preparation, delivery, and documentation of the care provided to Otilio Gross excluding any time spent in the performance of separately billed services. ZORAN Yang, ULISES [facility] documented in this encounter Plan of Treatment Upcoming Encounters Date Type Department Care Team (Late st Contact Info) Description 12/13/2023 8:30 AM EDT Imaging Radiology [facility] [address] [place] [address] 12/24/2023 2:00 PM EDT Scheduled Telephone [facility], [address] [place] [address] [facility], Nurse Phone Call Interventional Pain [address] [place] [address] Pending Results Name Type Priority Associated Diagnoses Date /Time URINALYSIS WITH MICROSCOPIC EXAM Lab Routine Pain in penis 12/10/2023 9:15 AM EDT Scheduled Orders Name Type Priority Associated Diagnoses Orde r Schedule URINALYSIS WITH MICROSCOPIC EXAM Lab Routine Pain in penis Expected: 12/10/2023 (Approximate), Expires: 12/09/2024 CT ABD/PELVIS WO IV/ORAL CONTRAST Medical Imaging Routine RLQ abdominal pain Ordered: 12/10/2023 Scheduled Procedures Name Priority Associated Diagnoses Date/Ti me COLONOSCOPY FLEXIBLE PROXIMA L DIAGNOSTIC Recall Screening for colon cancer Health Maintenance Due Date Last Done Comments HIV Screening 1985 Hepatitis C Screening 02/27/1988 Hepatitis B Vaccine (1 of 3 - 19+ 3-dose series) 1989 Cologuard 2015 Fecal Occult Blood Test 2015 Sigmoidoscopy 2015 Depression Screening 05/10/2018 05/10/2017 DTap/Tdap Vaccines (2 - Td or Tdap) 05/31/2022 05/31/2012 COVID-19 Vaccine ( season) 2024 11/23/2023, 11/23/2023, 03/05/2023, Additional history exists Diabetes Screening 05/21/2025 05/21/2022, 1 , 06/07/2012, Additional history exists Lipid Panel 05/22/2027 05/21/2022, 10/0 09/2020, 06/07/2012, Additional history exists Colonoscopy 05/20/2031 05/19/2021, 05/19/2021 Colorectal Cancer Screening 05/20/2031 Zoster Vaccines Completed 02/11/2021, 12/04/2020 Influenza Vaccine (FLU shot) Completed , 03/05/2023, 01/19/2022, Additional history exists HPV (Gardasil) Vaccine Aged Out No lo [...] Not on filedocumented as of this encounter Visit Diagnoses Diagnosis Pain in penis- Primary Unspecified disorder of penis RLQ abdominal pain Abdominal pain, right lower quadrant documented in this encounter Care Teams Zoo Keeper Relationship Specialty Start Date End Date Sivan Ceballos DO [address] [place] [address] PCP - General Family Medicine 09/09/23 documented as of this encounter
--- OUTSIDE RECORDS SUMMARY | 2024-01-10 21:32 | External Medical Summary | Summary of Care ---
Author Name Unknown Organization [facility] Address [address] [place] [address] Phone [phone] Care Team Providers Care Weight Engineer Name Role Phone Sivan Ceballos DO Primary Care Provider [phone] Reason for Visit * Reason Comments NEW PATIENT Appendicolith, right side pain / right flank pain - intermittently * Evaluate & Treat - Unlimited Visits (Within 30 days (routine)) - Authorized Specialty Diagnoses / Procedures Referred By Tati de anda Referred To Contact General Surgery Diagnoses Appendicolith Abdominal pain, RLQ (right lower quadrant) Monserrat Rangel CRNP [address] [employer] [place] [address] Referral ID Status Reason Start Date Expiration Date Visits Requested Visits Authorized [id number] Authorized Specialty Services Required 12/29/[phone] Encounter Details Date Type Department Care Team (Late st Contact Info) Description 01/05/2024 9:00 AM EST Office Visit General Surgery, [facility] [address] [place] [facility] [place] [address] Azael Estrada MD [address] [facility] [place] [address] Appendicolith*; Pre-op examination Allergies No known active allergiesdocumented as of this encounter (statuses as of 01/05/2024) Medications Medication Sig Dispensed Refills Start Date End Date Status Fish Oil 360 MG Oral Capsule Take by mouth. Active Triamcinolone Acetonide 0.1 % External Cream (Aristocort)Indication s:Pruritus Apply thin layer to arms, legs, chest, back twice daily as needed for itch 80 g 5 09/21/2023 Active documented as of this encounter (statuses as of 01/05/2024) Active Problems Problem Noted Date Diagnosed Date Onychomycosis 05/19/2022 documented as of this encounter (statuses as of 01/05/2024) Resolved Problems Problem Noted Date Diagnosed Date Resolved Date Acute sinusitis 08/18/2012 06/26/2014 ADVANCE DIRECTIVE INFORMATION 07/17/2005 01/03/2024 Overview: Yes-advised to bring copy to be scanned into EMR documented as of this encounter (statuses as of 01/05/2024) Immunizations Name Administration Dates Next Due COVID-19 mRNA, LNP-s, No Pre serve, 2-Dose Series ([employer]) 01/15/2021,05/02/2020,04/11/2020 Covid-19, Mrna, Lnp-s, Pf, B ivalent, [...] No 05/30/2023 Does the household have a [facility] source of income? (Household - for ages [...] Sign Reading Time Taken Comments Blood Pressure - - Pulse - - Temperature 35.6 C (96.1 F) 01/05/2024 8:53 AM ES T Respiratory Rate - - Oxygen Saturation - - Inhaled Oxygen Concentration - - Weight 95.1 kg (209 lb 9.6 oz) 01/05/2024 8:53 A M EST Height - - Body Mass Index 28.43 05/31/2023 1:54 PM EDT documented in this encounter Progress Notes * Azael Estrada MD - 01/05/2024 9:21 AM EST [facility] [address] [place] [address] [facility] Chief Complaint: Pt. c/o intermittent right abdominal and flank pain HPI: Patient is seen in request of Monserrat MONTGOMERY. Otilio Gross is a 53 year old male who presents with intermittent right abdominal and flank pain. A CT scan shows a appendicolith. Past Surgical History: Procedure Laterality Date COLONOSCOPY, DIAGNOSTIC (RECTUM) 05/19/2021 diverticulosis, repeat 10 yrs / COLONOSCOPY FLEXIBLE PROXIMAL DIAGNOSTIC performed by Carolee Monk DO at ENDOSCOPY [facility] FOOT/TOE SURGERY NEC 03/01/2001 Achilles tendonitis and bony revision L foot INJECT DX/THER SUBSTANCE INTERLAMINAR LUMBAR/SACRAL W IMAGE GUIDE 11/19/2023 INJECTION SPINE LUMBAR OR SACRAL performed by Silvana Morrissey MD at OR [facility] VASECTOMY Past Medical History: Diagnosis Date Spermatocele R sided 1 cm Current Outpatient Medications Medication Sig Dispense Refill Fish Oil 360 MG Oral Capsule Take by mouth. Triamcinolone Acetonide 0.1 % External Cream (Aristocort) Apply thin layer to arms, legs, chest, back twice daily as needed for itch 80 g 5 No current facility-administered medications for this visit. History Social History Socioeconomic History Marital status: Tobacco Use Smoking status: Never Smokeless tobacco: Never Substance and Sexual Activity Alcohol use: Yes Comment: rare social Drug use: No Sexual activity: Yes Partners: Female control/protection: Surgical Social Determinants of Health Financial Resource Strain: Low Risk (05/30/2023) Financial Resource Strain Do you have any trouble paying for your medications, or do you think you might in the future? (Adult - for ages 18 years and over): No Food Insecurity: No Food Insecurity (05/30/2023) Food Insecurity Do you need food for this week? (Adult - for ages 18 years and over): No Transportation Needs: No Transportation Needs (05/30/2023) Transportation Needs Do you have trouble getting a ride to medical visits or work? (Adult - for ages 18 years and over):Never True Social Connections: Socially Integrated (05/30/2023) Social Connections How often do you feel lonely or isolated from those around you? (Adult - for ages 18 years and over): Never Housing Stability: Low Risk (05/30/2023) Housing Stability Do you currently live in a jail or have no steady place to sleep at night? (Adult - for ages 18 years and over): No Do you think you are at risk of becoming homeless? (Adult - for ages 18 years and over): No Review of patient's allergies indicates: Review of patient's allergies indicates: No Known Allergies Patient Information Form Reviewed and Scanned. ROS EXAM: CONSTITUTIONAL: No change in weight, No weakness, No fatigue, and No fevers, sweats, or chills NECK: No lumps or masses, No swollen glands, No recent swelling in thyroid area, No significant pain in neck, and No h/o goiter or thyroid disease PULMONARY: No cough, sputum, or hemoptysis, No wheezing, No rales, No shortness of breath, and No recent change in breathing CARDIOVASCULAR: No chest pain, No shortness of breath, No dyspnea on exertion, No orthopnea, No paroxysmal nocturnal dyspnea, No edema, No palpitations, and No syncope GASTROINTESTINAL: No change in bowel habits, No significant heartburn, No significant change in appetite, No nausea, vomiting, diarrhea, or constipation, No hematemesis, No blood in stools or black tarry stools, No abdominal bloating or early satiety, and No dysphagia HEMATOLOGIC: No coagulation disorder, No anemia, No abnormal bleeding, No chills, No bruising, No HIV risk factors, No night sweats, No swollen nodes, No weight loss, and No history of transfusion EXTREMITIES: No pain, redness or swelling on the joints SKIN/INTEGUMENTARY: No edema, No rash, and No itching NEUROLOGIC: Normal balance, No headaches, No seizures, and No weakness PSYCHIATRIC: No depression, No anxiety, and No psychosis Physical Exam: Temp 35.6 C (96.1 F) | Wt 95.1 kg (209 lb 9.6 oz) | BMI 28.43 kg/m | BSA 2.2 m Constitutional: alert,healthy,well nourished Head: normocephalic,atraumatic Eyes: conjunctiva non-injected,sclera white,EOMI Ears: pinna normal shape and color Nose: no mucosal erythema,no mucosal edema,no purulent discharge Mouth: no exudate,no erythema,lips, mucosa, and tongue normal Neck: supple,no JVD,trachea midline Lungs: clear to auscultation,breath sounds are equal and symmetric,no crepitus Heart: regular rate & rhythm,no murmur, gallops or rubs Abdomen: soft, non-tenderBack: normal curvature,normal ROM,no CVA tenderness Extremities: no joint deformities, effusion, or inflammation,no edema,no skin discoloration Neuro: alert,gait normal,motor normal Skin: no obvious rashes or significant lesions,warm and dry with good turgor Imaging: EXAM EXAM: CT ABD/PELVIS WO IV/ORAL CONTRAST DATE and TIME: 12/13/2023 9:33 am HISTORY CLINICAL INFORMATION: RLQ/flnk pain, r/o kidney stone TECHNIQUE Oral Contrast: Oral contrast was administered. Oral contrast was not administered. IV Contrast: No IV Contrast used ml of was injected intravenously; Prepared:; Not Used: Abdomen/Pelvis: without and with intravenous contrast COMPARISON None FINDINGS LOWER CHEST: HEART(visualized): Unremarkable LUNG BASES: Unremarkable ABDOMEN/PELVIS: LINES AND DEVICES: None LIVER: Unremarkable BILE DUCTS: Unremarkable GALLBLADDER: Unremarkable PANCREAS: Unremarkable SPLEEN: Unremarkable ADRENALS: Unremarkable KIDNEYS/URETERS: No obstructive renal calculi. Bilateral renal punctate nonobstructive calculi are present no hydronephrosis. No hydroureter. No ureteral calculi. BLADDER: No bladder or UVJ calculi BOWEL: Unremarkable. Appendix unremarkable except for the presence of an appendicolith (3, 104). Noperiappendiceal fat stranding. Diverticulosis without diverticulitis. LYMPH NODES: Unremarkable VESSELS: Unremarkable REPRODUCTIVE ORGANS: Unremarkable PERITONEUM/RETROPERITONEUM: Unremarkable ABDOMINAL WALL/SOFT TISSUES: Unremarkable BONES: Unremarkable IMPRESSION IMPRESSION 1. Bilateral renal punctate nonobstructive calculi . 2. appendicolith. IMPRESSION: Symptomatic appendicolith PLAN: Laparoscopic appendectomy at [facility] on 01/24/2024 Pt. understands this, all questions were answered to the pt. satisfaction and they signed the consent for surgery. Azael Estrada MD 01/05/2024 9:25 AM documented in this encounter Nursing Notes * Naina Damon LPN - 01/05/2024 10:11 AM EST Patient scheduled at [facility] for lap appendectomy with Dr Azael Estrada. Date of Test: 01/23/2025 Medications reviewed. EKG obtained Labs: obtained Permit signed. Patient verbalizes understanding of pre- and post op instructions. Written instructions given for review at later date. Naina Damon LPN 01/05/2024 * Mary Kate Silva LPN - 01/05/2024 8:54 AM EST Patient identified by name and date of . Chief Complaint Patient presents with NEW PATIENT Appendicolith, right side pain / right flank pain - intermittently Pt stating that he had 2 episodes of pain that started in his groin and went up his right side/ flank. CT scan on 12/13/2023. documented in this encounter Miscellaneous Notes * Addendum Note - Naina Damon LPN - 01/05/2024 9:28 AM ESTAddended by: NAINA DAMON on: 01/05/2024 09:28 AM Modules accepted: Orders documented in this encounter Plan of Treatment Upcoming Encounters Date Type Department Care Team (Late st Contact Info) Description 01/10/2024 10:15 AM EST Cardiac Studies Card[facility], [facility] [address] [facility] [place] [address] 02/09/2024 9:30 AM EST Office Visit General Surgery, [facility] [address] [facility] [place] [address] Azael Estrada MD [address] [facility] [place] [address] Scheduled Orders Name Type Priority Associated Diagnoses Orde r Schedule CBC Lab Routine Pre-op examination Expected: 01/05/2024, Expires: 01/04/2025 COMPREHENSIVE METABOLIC PANEL Lab Routine Pre-op examination Expected: 01/05/2024, Expires: 01/04/2025 EKG EKG Routine Pre-op examination Expected: 01/05/2024 (Approximate), Expires: 02/03/2025 Scheduled Procedures Name Priority Associated Diagnoses Date/Ti [...] as of this encounter Visit Diagnoses Diagnosis Appendicolith- Primary Other and unspecified diseases of appendix Pre-op examination Preoperative examination, unspecified documented in this encounter Care Teams Weight Engineer Relationship Specialty Start Date End Date Sivan Ceballos DO [address] [place] [address] PCP - General Family Medicine 09/09/23 documented as of this encounter"
--- OUTSIDE RECORDS SUMMARY | 2024-01-10 21:32 | External Medical Summary | Summary of Care ---
Author Name Unknown Organization [facility] Address [address] [place] [address] Phone [phone] Care Team Providers Care Animal Technician Name Role Phone Sivan Ceballos DO Primary Care Provider [phone] Reason for Visit * Reason Comments NEW PATIENT Appendicolith, right side pain / right flank pain - intermittently * Evaluate & Treat - Unlimited Visits (Within 30 days (routine)) - Authorized Specialty Diagnoses / Procedures Referred By Tati de anda Referred To Contact General Surgery Diagnoses Appendicolith Abdominal pain, RLQ (right lower quadrant) Monserrat Rangel CRNP [address] [place] [address] Referral ID Status Reason Start Date Expiration Date Visits Requested Visits Authorized [id number] Authorized Specialty Services Required 12/29/[phone] Encounter Details Date Type Department Care Team (Late st Contact Info) Description 01/05/2024 9:00 AM EST Office Visit General Surgery, [facility] [address] [place] [address] Azael Estrada MD [address] [place] [address] Appendicolith*; Pre-op examination Allergies No known active [...] mRNA, LNP-s, No Pre serve, 2-Dose Series ([employer]) 01/15/2021,05/02/2020,04/11/2020 Covid-19, Mrna, Lnp-s, Pf, B ivalent, [...] Estrada MD - 01/05/2024 9:21 AM EST [facility] [address] [facility] [place] [address] [facility] Chief Complaint: Pt. c/o intermittent right abdominal [...] DO at ENDOSCOPY [facility] FOOT/TOE SURGERY NEC 03/01/2001 Achilles tendonitis and bony revision L foot INJECT DX/THER SUBSTANCE INTERLAMINAR LUMBAR/SACRAL W IMAGE GUIDE 11/19/2023 INJECTION SPINE LUMBAR OR SACRAL performed by Silvana Morrissey MD at OR [facility] VASECTOMY Past Medical History: Diagnosis Date Spermatocele [...] Stability Do you currently live in a [facility] or have no steady place to sleep [...] IMPRESSION: Symptomatic appendicolith PLAN: Laparoscopic appendectomy at [facility] on 01/24/2024 Pt. understands this, all questions were answered to the pt. satisfaction and they signed the consent for surgery. Azael Estrada MD 01/05/2024 9:25 AM documented in this encounter Nursing Notes * Mary Kate Silva LPN - 01/05/2024 [...] documented in this encounter Plan of Treatment Scheduled Orders Name Type Priority Associated Diagnoses [...] unspecified documented in this encounter Care Teams Animal Technician Relationship Specialty Start Date End Date Sivan Ceballos DO [address] [place] [address] PCP - General Family Medicine 09/09/23 documented as of this encounter"
--- OUTSIDE RECORDS SUMMARY | 2024-01-10 21:32 | External Medical Summary ---
Author Name Unknown Address Unknown Organization K0G:[facility] [place] [address] [place] [address] Laboratory Report Ordering Provider Test Date Status SARMAD JUNE 01/10/2024 11:22:33 Final Observation Date Value Abnormality Reference (Units ) Status WBC, Total 01/10/2024 11:22:33 8.97 4.00-10.8 0 (K/uL) Final RBC 01/10/2024 11:22:33 4.78 4.50-5.25 (M/uL) Final Hemoglobin 01/10/2024 11:22:33 16.2 14.0-16.8 (g/dL) Final HCT 01/10/2024 11:22:33 46.5 40.0-48.4 (%) Final MCV 01/10/2024 11:22:33 97.3 82.0-99.5 (fL) Final MCH 01/10/2024 11:22:33 33.9 27.0-34.0 (pg) Final MCHC 01/10/2024 11:22:33 34.8 32.0-36.0 (g/dL) Final RDW 01/10/2024 11:22:33 12.4 11.5-15.5 (%) Final Platelets 01/10/2024 11:22:33 250 140-400 (K /uL) Final MPV 01/10/2024 11:22:33 10.4 6.6-11.1 ( fL) Final Performing Location [facility] [place] [address] [place] [id number]
--- OUTSIDE RECORDS SUMMARY | 2024-01-10 21:32 | External Medical Summary | Summary of Care ---
Author Name Unknown Organization [facility] Address [address] [place] [address] Phone [phone] Care Team Providers Care Communications Lead Name Role Phone Sivan Ceballos DO Primary Care Provider [phone] Reason for Visit * Reason Comments NEW PATIENT Appendicolith, right side pain / right flank pain - intermittently * Evaluate & Treat - Unlimited Visits (Within 30 days (routine)) - Authorized Specialty Diagnoses / Procedures Referred By Tati de anda Referred To Contact General Surgery Diagnoses Appendicolith Abdominal pain, RLQ (right lower quadrant) Monserrat Rangel CRNP [address] [place] [address] Referral ID Status Reason Start Date Expiration Date Visits Requested Visits Authorized [id number] Authorized Specialty Services Required 12/29/[phone] Encounter Details Date Type Department Care Team (Late st Contact Info) Description 01/05/2024 9:00 AM EST Office Visit General Surgery, [facility] [address] [facility] [place] [address] Azael Estrada MD [address] [address] Appendicolith*; Pre-op examination Allergies No known active [...] mRNA, LNP-s, No Pre serve, 2-Dose Series ([employer]) 01/15/2021,05/02/2020,04/11/2020 Covid-19, Mrna, Lnp-s, Pf, B ivalent, [...] No 05/30/2023 Does the household have a [facility] source [facility] income? (Household - for ages [...] Estrada MD - 01/05/2024 9:21 AM EST [facility] 132 [facility] [place] [address] [facility] Chief Complaint: Pt. c/o intermittent right [...] performed by Carolee Monk DO at ENDOSCOPY [facility] FOOT/TOE SURGERY NEC 03/01/2001 Achilles tendonitis and bony revision L foot INJECT DX/THER SUBSTANCE INTERLAMINAR LUMBAR/SACRAL W IMAGE GUIDE 11/19/2023 INJECTION SPINE LUMBAR OR SACRAL performed by Silvana Morrissey MD at OR [facility] VASECTOMY Past Medical History: Diagnosis Date Spermatocele [...] Stability Do you currently live in a [facility] or have no steady place to sleep [...] IMPRESSION: Symptomatic appendicolith PLAN: Laparoscopic appendectomy at [facility] on 01/24/2024 Pt. understands this, [...] unspecified documented in this encounter Care Teams Communications Lead Relationship Specialty Start Date End Date Sivan Ceballos DO [address] [address] PCP - General Family Medicine 09/09/23 documented as of this encounter"
--- OUTSIDE RECORDS SUMMARY | 2024-01-10 21:32 | External Medical Summary | Summary of Care ---
Author Name Unknown Organization [facility] Address [address] [place] [address] Phone [phone] Care Team Providers Care Research Microbiologist Name Role Phone Sivan Ceballos DO Primary Care Provider [phone] Reason for Visit * Reason Comments NEW PATIENT Appendicolith, right side pain / right flank pain - intermittently * Evaluate & Treat - Unlimited Visits (Within 30 days (routine)) - Authorized Specialty Diagnoses / Procedures Referred By Tati de anda Referred To Contact General Surgery Diagnoses Appendicolith Abdominal pain, RLQ (right lower quadrant) Monserrat Rangel CRNP [address] [email or web address] [address] Referral ID Status Reason Start Date Expiration Date Visits Requested Visits Authorized [id number] Authorized Specialty Services Required 12/29/[phone] Encounter Details Date Type Department Care Team (Late st Contact Info) Description 01/05/2024 9:00 AM EST Office Visit General Surgery, [facility] [address] [facility] [place] [address] Azael Estrada MD [address] [place] [address] Appendicolith*; Pre-op examination Allergies No known active [...] mRNA, LNP-s, No Pre serve, 2-Dose Series ([employer]) 01/15/2021,05/02/2020,04/11/2020 Covid-19, Mrna, Lnp-s, Pf, B ivalent, [...] No 05/30/2023 Does the household have a [facility] source of income? (Household - [...] Estrada MD - 01/05/2024 9:21 AM EST [facility] [address] [facility] [place] [address] [facility] Chief Complaint: Pt. c/o intermittent right [...] performed by Carolee Monk DO at ENDOSCOPY [facility] FOOT/TOE SURGERY NEC 03/01/2001 Achilles tendonitis and bony revision L foot INJECT DX/THER SUBSTANCE INTERLAMINAR LUMBAR/SACRAL W IMAGE GUIDE 11/19/2023 INJECTION SPINE LUMBAR OR SACRAL performed by Silvana Morrissey MD at OR [facility] VASECTOMY Past Medical History: Diagnosis Date Spermatocele [...] Stability Do you currently live in a [place] [facility] or have no steady place to sleep [...] IMPRESSION: Symptomatic appendicolith PLAN: Laparoscopic appendectomy at [facility] on 01/24/2024 Pt. understands this, [...] unspecified documented in this encounter Care Teams Research Microbiologist Relationship Specialty Start Date End Date Sivan Ceballos DO [address] [address] PCP - General Family Medicine 09/09/23 documented as of this encounter"
--- OUTSIDE RECORDS SUMMARY | 2024-01-10 21:32 | External Medical Summary | Summary of Care ---
Author Name Unknown Organization [facility] Address [address] [place] [address] Phone [phone] Care Team Providers Care Job Setter Honing Name Role Phone Sivan Ceballos DO Primary Care Provider Reason for Visit * Reason Onset Date Comments Follow Up 12/24/2023 Encounter Details Date Type Department Care Team (Late st Contact Info) Description 12/24/2023 2:00 PM EDT Scheduled Telephone Interventional Pain Center, [facility] [address] [place] [address] [facility] Nurse Phone Call Interventional Pain [facility] [address] [place] [address] Allergies No known active allergiesdocumented as of this encounter (statuses as of 12/27/2023) Medications Medication Sig Dispensed Refills Start Date End Date Status Fish Oil 360 MG Oral Capsule Take by mouth. Active Triamcinolone Acetonide 0.1 % External Cream (Aristocort)Indication s:Pruritus Apply thin layer to arms, legs, chest, back twice daily as needed for itch 80 g 5 09/21/2023 Active documented as of this encounter (statuses as of 12/27/2023) Active Problems Problem Noted Date Diagnosed Date Onychomycosis 05/19/2022 ADVANCE DIRECTIVE INFORMATION 07/17/2005 Overview: Yes-advised to bring copy to be scanned into EMR documented as of this encounter (statuses as of 12/27/2023) Resolved Problems Problem Noted Date Diagnosed Date Resolved Date Acute sinusitis 08/18/2012 06/26/2014 documented as of this encounter (statuses as of 12/27/2023) Immunizations Name Administration Dates Next Due COVID-19 mRNA, LNP-s, No Pre serve, 2-Dose Series (Pfizer) 01/15/2021,05/02/2020,04/11/2020 Covid-19, Mrna, Lnp-s, Pf, B ivalent, [...] 05/30/2023 Does the household have a re lar source of income? (Household - for ages [...] on file documented as of this encounter Miscellaneous Notes * Telephone Encounter - Irene Darden LPN - 12/24/2023 9:16 AM EDT Interlaminar Epidural Steroid Injection at the L3-L4 level on 11/19/23 Left message for patient to return call. documented in this encounter Plan of Treatment Upcoming Encounters Date Type Department Care Team (Late st Contact Info) Description 01/05/2024 9:00 AM EST Office Visit General Surgery, [facility] [address] [place] [address] Azael Estrada MD [address] [address] Scheduled Procedures Name Priority Associated Diagnoses Date/Ti [...] Not on filedocumented as of this encounter Care Teams Job Setter Honing Relationship Specialty Start Date End Date Sivan Ceballos DO [address] [place] [address] PCP - General Family Medicine 09/09/23 documented as of this encounter
--- OUTSIDE RECORDS SUMMARY | 2024-01-10 21:32 | External Medical Summary | Summary of Care ---
Author Name Unknown Organization [facility] Address [address] [place] [address] Phone [phone] Care Team Providers Care Double Cut Off Saw Operator Name Role Phone Sivan Ceballos DO Primary Care Provider [phone] Reason for Visit * Reason Onset Date Comments Medical Records Request 12/20/2023 Encounter Details Date Type Department Care Team (Late st Contact Info) Description 12/20/2023 Telephone Dermatology [facility] [address] [place] [address] Eliseo Herrera MD [address] [place] [address] Medical Records Request Allergies No known active allergiesdocumented as of this encounter (statuses as of 12/20/2023) Medications Medication Sig Dispensed Refills Start Date End Date Status Fish Oil 360 MG Oral Capsule Take by mouth. Active Triamcinolone Acetonide 0.1 % External Cream (Aristocort)Indication s:Pruritus Apply thin layer to arms, legs, chest, back twice daily as needed for itch 80 g 5 09/21/2023 Active documented as of this encounter (statuses as of 12/20/2023) Active Problems Problem Noted Date Diagnosed Date Onychomycosis 05/19/2022 ADVANCE DIRECTIVE INFORMATION 07/17/2005 Overview: Yes-advised to bring copy to be scanned into EMR documented as of this encounter (statuses as of 12/20/2023) Resolved Problems Problem Noted Date Diagnosed Date Resolved Date Acute sinusitis 08/18/2012 06/26/2014 documented as of this encounter (statuses as of 12/20/2023) Immunizations Name Administration Dates Next Due COVID-19 mRNA, LNP-s, No Pre serve, 2-Dose Series ([employer]) 01/15/2021,05/02/2020,04/11/2020 Covid-19, Mrna, Lnp-s, Pf, B ivalent, [...] encounter Miscellaneous Notes * Telephone Encounter - Joseph Guzman OSA - 12/20/2023 12:25 PM EDT Record Request received from Tonya Streeter - forwarded to HIM ([id number]) via IOM documented in this encounter Plan of Treatment Upcoming Encounters Date Type Department Care Team (Late st Contact Info) Description 12/24/2023 2:00 PM EDT Scheduled Telephone Interventional Pain Center, [facility] [address] [place] [address] [place] Nurse Phone Call Interventional Pain [place] [address] 01/05/2024 9:00 AM EST [facility] [place] [address] Azael Estrada MD [address] [place] [address] Scheduled Procedures Name Priority Associated Diagnoses Date/Ti [...] filedocumented as of this encounter Care Teams Double Cut Off Saw Operator Relationship Specialty Start Date End Date Sivan Ceballos DO [address] [place] [address] PCP - General Family Medicine 09/09/23 documented as of this encounter
--- OUTSIDE RECORDS SUMMARY | 2024-01-10 21:33 | External Medical Summary | Summary of Care ---
Author Name Unknown Organization [facility] Address [address] [place] [address] Phone [phone] Care Team Providers Care Shredding Machine Knife Changer Name Role Phone Yue Britt DO Primary Care Provider [phone] Reason for Visit * Reason Comments NEW PATIENT Reoccurring red itch y lesions on back and body, pt reports a slight burning feeling, pt has been on prednisone before with some relief, cortisone cream also offers some relief, pt reports this worsens in the winter even with lotion- pcp referral * Evaluate & Treat - Unlimited Visits (Within 10 days (routine)) - Pending Review Specialty Diagnoses / Procedures Referred By Tati de anda Referred To Contact Dermatology Diagnoses Skin lesion Yue Britt DO [address] [place] [address] Referral ID Status Reason Start Date Expiration Date Visits Requested Visits Authorized [id number] Pending Review Specialty Services Required 07/14/[phone] Encounter Details Date Type Department Care Team (Late st Contact Info) Description 09/21/2023 8:30 AM EDT Office Visit Dermatology [facility] [place] [address] [place] [address] Eliseo Herrera MD [address] [place] [address] Pruritus*; Inflamed seborrheic keratosis Allergies No known active allergiesdocumented as of this encounter (statuses as of 09/21/2023) Medications Medication Sig Dispensed Refills Start Date End Date Status Fish Oil 360 MG Oral Capsule Take by mouth. Active Triamcinolone Acetonide 0.1 % External Cream (Aristocort)Indication s:Pruritus Apply thin layer to arms, legs, chest, back twice daily as needed for itch 80 g 5 09/21/2023 Active documented as of this encounter (statuses as of 09/21/2023) Active Problems Problem Noted Date Diagnosed Date Onychomycosis 05/19/2022 ADVANCE DIRECTIVE INFORMATION 07/17/2005 Overview: Yes-advised to bring copy to be scanned into EMR documented as of this encounter (statuses as of 09/21/2023) Resolved Problems Problem Noted Date Diagnosed Date Resolved Date Acute sinusitis 08/18/2012 06/26/2014 documented as of this encounter (statuses as of 09/21/2023) Immunizations Name Administration Dates Next Due COVID-19 mRNA, LNP-s, No Pre serve, 2-Dose Series ([employer]) 01/15/2021,05/02/2020,04/11/2020 HEP A - Hepatitis A (Adult [...] No 05/30/2023 Does the household have a [facility] source of income? (Household - for [...] on file documented as of this encounter Progress Notes * Eliseo Herrera MD - 09/21/2023 8:32 AM EDT SUBJECTIVE: Chief Complaint: Chief Complaint Patient presents with NEW PATIENT Reoccurring red itchy lesions on back and body, pt reports a slight burning feeling, pt has been onprednisone before with some relief, cortisone cream also offers some relief, pt reports this worsens in the winter even with lotion- pcp referral HPI: Otilio Gross is a 53 year old male seen for red itchy rash. Located on back. Has some other spots as well. Went on prednisone and lesions went away but then came back Comes and goes put HCT on it recently and mostly went away Sometimes gets so itchy that it's burning Spot on stomach, Sometimes get itchy on his arms, but no rash Some spots on legs Does have back pains Short showers. Not sure which soap. Does use moisturizers REVIEW OF SYSTEMS: CONSTITUTIONAL: negative SKIN: No new or changing moles or rashes other than those noted in HPI HEME/LYMPH: No new or enlarging lumps or bumps OBJECTIVE: GEN: Healthy, alert, no distress, appears oriented, pleasant, and cooperative SKIN: Detailed exam of hair, face, trunk, arms, and legs Central back - thin brown lichenified papule Scattered on arms and abdomen are a few isolated pink follicular-based papules ASSESSMENT/PLAN: Inflamed Seborrheic Keratoses - Discussed benign nature - Due to pain, irritation will destroy above lesion(s) today via cryotherapy Procedure - Cryosurgery (Benign Destruction) Cryosurgery explained to the patient, consent obtained, patient, site and procedure verified, and then cryotherapy was performed with Liquid Nitrogen via cryo spray unit to 1 lesions. Location noted in physical exam. Post op course explained. Pruritus/xerosis Recommended short lukewarm showers, gentle soaps, frequent moisturizers - triamcinolone BID to any itchy areas Eliseo Herrera MD Ref: YUE BRITT[[id number]] [address] [place] [address] (office) [phone] (fax) PCP: YUE BRITT [address] [place] [address] [phone] documented in this encounter Nursing Notes * Samaria Browning LPN - 09/21/2023 8:30 AM EDT Patient identified by name and date of . Do you have any concerns about pain management for today's visit? No Living Will or Advance Directive for Health Care as noted on problem list. [facility] is a way you can talk to your provider online through e-mail. Would you like to sign up? I can activate it for you? ALREADY ACTIVE Chief Complaint Patient presents with NEW PATIENT Reoccurring red itchy lesions on back and body, pt reports a slight burning feeling, pt has been onprednisone before with some relief, cortisone cream also offers some relief, pt reports this worsens in the winter even with lotion- pcp referral documented in this encounter Plan of Treatment Upcoming Encounters Date Type Department Care Team (Late st Contact Info) Description 11/19/2023 11:20 AM EDT Hospital Encounter [facility], Operating Room [facility] [address] [place] [phone] Silvana Morrissey MD [address] [place] [address] [place] [address] 11/19/2023 11:20 AM EDT - 11/19/2023 11:40 AM EDT Surgery OR [facility], Operating Room [facility] [address] [place] [address] Silvana Morrissey MD [address] [place] [address] [place] [address] INJECTION SPINE LUMBAR OR SACRAL Scheduled Procedures Name Priority Associated Diagnoses Date/Ti [...] 2015 Sigmoidoscopy 2015 Depression Screening 05/10/2018 05/10/2017 DTaP,Tdap,and Td Vaccines (2 - Td or Tdap) 05/31/2022 05/31/2012 COVID-19 Vaccine ( - 2022- season) 2022 01/15/2021, 05/02/2020, 04/11/2020 Influenza Vaccine (FLU shot) [...] as of this encounter Visit Diagnoses Diagnosis Pruritus- Primary Unspecified pruritic disorder Inflamed seborrheic keratosis Lumbar radiculopathy Thoracic or lumbosacral neuritis or radiculitis, unspecified documented in this encounter Care Teams Shredding Machine Knife Changer Relationship Specialty Start Date End Date Yue Britt DO [address] [address] PCP - General Family Medicine 09/09/23 documented as of this encounter
--- OUTSIDE RECORDS SUMMARY | 2024-01-10 21:33 | External Medical Summary | Summary of Care ---
Author Name Unknown Organization [facility] Address [address] [place] [address] Phone [phone] Care Team Providers Care Otolaryngology Rep Name Role Phone Unavailable Primary Care Provider Unavailabl e Reason for Visit * Reason Comments Back Pain * Evaluate & Treat - Unlimited Visits (Within 10 days (routine)) - Pending Review Specialty Diagnoses / Procedures Referred By Tati de anda Referred To Contact Pain Management / Pain Medicine Diagnoses Acute right-sided low back pain with right-sided sciatica Paresthesias Lumbar radiculopathy Sivan Ceballos DO [address] [place] [address] Referral ID Status Reason Start Date Expiration Date Visits Requested Visits Authorized [id number] Pending Review Specialty Services Required 07/13/[phone] Encounter Details Date Type Department Care Team (Late st Contact Info) Description 09/09/2023 8:00 AM EDT Office Visit [facility], [facility] [address] [place] [address] Ronel Beebe PA-C [address] [place] [address] Lumbar radicular pain*; Spinal stenosis of lumbar region with neurogenic claudication Allergies No known active allergiesdocumented as of this encounter (statuses as of 09/09/2023) Medications Medication Sig Dispensed Refills Start Date End Date Status predniSONE 20 MG Oral Tablet (Deltasone)Indicat ions:Acute right-sided low back pain with right-sided sciatica,Paresthes ias,Hip pain, right Take 3 tabs for 3 days, 2 tabs for 3 days, 1 tab for 3 days, 1/2 tab for 3 days 20 Tablet 05/31/2023 09/09/2023 Discontinued( End of Procedure) documented as of this encounter (statuses as of 09/09/2023) Active Problems Problem Noted Date Diagnosed Date Onychomycosis 05/19/2022 ADVANCE DIRECTIVE INFORMATION 07/17/2005 Overview: Yes-advised to bring copy to be scanned into EMR documented as of this encounter (statuses as of 09/09/2023) Resolved Problems Problem Noted Date Diagnosed Date Resolved Date Acute sinusitis 08/18/2012 06/26/2014 documented as of this encounter (statuses as of 09/09/2023) Immunizations Name Administration Dates Next Due COVID-19 mRNA, LNP-s, No Pre serve, 2-Dose Series (Wigix) 01/15/2021,05/02/2020,04/11/2020 HEP A - Hepatitis A (Adult [...] as of this encounter Progress Notes * Ronel Beebe PA-C - 09/09/2023 8:05 AM EDT GENERAL HISTORY & PHYSICAL EXAMINATION - Anesthesia and Pain Service Name: Otilio Gross Location: [facility], [facility] REFERRING PHYSICIAN: Sivan Ceballos, Thank you for referring Otilio Gross. CHIEF COMPLAINT: Low back and R LE pain HPI: Otilio Gross is a 53 year [...] steroid taper. No recent physical therapy or geriatric personal care aide. Massagetherapy x's one without significant benefit. Symptoms [...] performed by Carolee Monk DO at ENDOSCOPY [facility] FOOT/TOE SURGERY NEC 03/01/2001 Achilles tendonitis and [...] assistance. IMAGING: MRI LUMBAR SPINE WITHOUT CONTRAST 6/06/24 The retroperitoneal tissues are unremarkable in appearance. [...] PELVIS 05/31/2023 2:35 pm There are 5 [id number] lumbar type vertebrae. Vertebral body height and [...] LE Spinal stenosis with neurogenic claudication PLAN: Chronic low back pain with progressive R > L LE radiculopathy despite medication management, home stretching program. Neurologically intact. Reviewed L spine MRI 08/05/23 - minimal listhesis L3/4 with moderate central stenosis and subarticular narrowing, mild disc bulge and facet arthropathy L4/5, no acute compression changes. Discussed CYRUS using fluoroscopy. Risks including, but not limited to epidural hematoma, infection, worsening pain, failure to alleviate pain, nerve injury and possible steroid side effects were reviewed. Pre-procedure instructions reviewed - needs front load trash truck driver, no prescription medication holds. Due to severity and duration of symptoms, will schedule right interlaminar ESIL3/4. Ronel Beebe PA-C 09/09/2023 documented in this encounter Nursing Notes * Irene Darden LPN - 09/09/2023 8:03 AM EDT Patient presents with low back and right leg pain x1yr Had improvement for 2-3wks with Prednisone No PT/chiro/other tx No hx of spine surgery/inj's MRI in chart Worse with running, bending-shooting documented in this encounter Miscellaneous Notes * Pt Handout (on AVS) - Ronel Beebe PA-C - 09/09/2023 8:43 AM EDT Images from the original note were not included. Lumbar Epidural Steroid Injection - Video This injection procedure is performed to relieve low back and radiating leg pain. Steroid medication can reduce the swelling and inflammation caused by spinal conditions. To view the video go to this web address: [email or web address] Or, scan this QR code with your smart phone [employer] * Pt Handout (on AVS) - Ronel Beebe PA-C - 09/09/2023 8:43 AM EDT [id number] What Is Lumbar Epidural Injection? A lumbar epidural injection, which contains a numbing medicine and a steroid, won?t stop all low back and leg pain. But it can reduce pain and break the pain cycle. This cycle may begin when back pain makes it hard to move. Lack of movement can then slow down the healing process. By getting you back on your feet, the injection can help speed your recovery. Some people may feel more relief from aninjection than others. And some people may need more than 1 injection to get relief. Usually, no more than 3 injections are done in a 12- month period. If the first injection didn't help, it's less likely that another one will help. A tool for diagnosis An injection can help locate the source of pain. Also called a selective nerve block or a selectiveepidural, it numbs the roots of specific nerves. The effect lasts only briefly. But if you feel relief, it may indicate the source of the pain. If you feel no relief, it may mean that the pain?s source is at another level in your spine. Or it may mean that something other than inflammation is causing the pain. Injection results also may be used to help plan back surgery, if needed. Possible risks and complications Here are some risks of lumbar epidural injections: Spinal headache. This is a severe headache that gets worse when standing or sitting upright. Bleeding (rare) Infection (rare) Last Reviewed Date: 01/29/202119990256-4997 [employer]. All rights reserved. This information is not intended as a substitute for professional medical care. Always follow your healthcare professional's instructions. documented in this encounter Plan of Treatment Upcoming Encounters Date Type Department Care Team (Late st Contact Info) Description 11/19/2023 11:20 AM EDT Hospital Encounter [facility], Operating Room [facility] [address] [phone] Silvana Morrissey MD [address] [address] 11/19/2023 11:20 AM EDT - 11/19/2023 11:40 AM EDT Surgery OR [facility], Operating Room [facility] [address] [phone] Silvana Morrissey MD [address] [address] INJECTION SPINE LUMBAR OR SACRAL Scheduled Orders Name Type Priority Associated Diagnoses Orde r Schedule INJECT DX/THER SUBSTANCE INTERLAMINAR LUMBAR/SACRAL W IMAGE GUIDE Procedures Routine Lumbar radicular pain Spinal stenosis of lumbar region with neurogenic claudication Expected: 10/10/2023, Expires: 10/09/2024 Scheduled Procedures Name Priority Associated Diagnoses Date/Ti [...] Td or Tdap) 05/31/2022 05/31/2012 COVID-19 Vaccine (4 - season) 2022 01/15/2021, 05/02/2020, 04/11/2020 Influenza Vaccine (FLU shot) (#1) 2023 11/23/2021, 12/04/2020, 12/04/2020 Diabetes Screening 05/21/2025 05/21/2022, 1 , 06/07/2012, Additional history exists Lipid Panel 05/22/2027 05/21/2022, 09/2020, 06/07/2012, Additional history exists Colonoscopy 05/20/2031 [...] as of this encounter Visit Diagnoses Diagnosis Lumbar radicular pain- Primary Thoracic or lumbosacral neuritis or radiculitis, unspecified Spinal stenosis of lumbar region with neurogenic claudication Spinal stenosis, lumbar region, with neurogenic claudication Lumbar radiculopathy Thoracic or lumbosacral neuritis or radiculitis, unspecified documented in this encounter
--- OUTSIDE RECORDS SUMMARY | 2024-01-10 21:33 | External Medical Summary | Summary of Care ---
Author Name Unknown Organization [facility] Address [address] [facility] [place] [address] Phone [phone] Care Team Providers Care Injection Molding Supervisor Name Role Phone Unavailable Primary Care Provider Unavailabl e Reason for Visit * Reason Onset Date Comments Appointment 08/03/2023 Encounter Details Date Type Department Care Team (Late st Contact Info) Description 08/03/2023 Telephone Radiology [facility] [address] [facility] [place] [phone] Jenna Bird, RT (R) Appointment Allergies No known active allergiesdocumented as of this encounter (statuses as of 08/03/2023) Medications Medication Sig Dispensed Refills Start Date End Date Status predniSONE 20 MG Oral Tablet (Deltasone)Indications :Acute right-sided low back pain with right-sided sciatica,Paresthesias, Hip pain, right Take 3 tabs for 3 days, 2 tabs for 3 days, 1 tab for 3 days, 1/2 tab for 3 days 20 Tablet 05/31/2023 Active documented as of this encounter (statuses as of 08/03/2023) Active Problems Problem Noted Date Diagnosed Date Onychomycosis 05/19/2022 ADVANCE DIRECTIVE INFORMATION 07/17/2005 Overview: Yes-advised to bring copy to be scanned into EMR documented as of this encounter (statuses as of 08/03/2023) Resolved Problems Problem Noted Date Diagnosed Date Resolved Date Acute sinusitis 08/18/2012 06/26/2014 documented as of this encounter (statuses as of 08/03/2023) Immunizations Name Administration Dates Next Due COVID-19 mRNA, LNP-s, No Pre serve, 2-Dose Series (Pfizer) 01/15/2021,05/02/2020,04/11/2020 HEP A - Hepatitis A (Adult [...] money to get more. Never true 05/30/2023 Sex and Gender Information Value Date Recorded Sex Assigned at Male 05/17/2022 2:35 PM EDT Gender Identity Male 05/17/2022 2:35 PM EDT Sexual Orientation Straight 05/17/2022 2: 35 PM EDT Job Start Date Occupation Industry Not on file Not on file Not on file documented as of this encounter Miscellaneous Notes * Telephone Encounter - Jenna Bird, RT (R) - 08/03/2023 1:08 PM EDT Name: Otilio Gross Do you have any of the following: Pacemaker, stents, heart valves, aneurysm clips? No Have you ever worked with metal or have you ever gotten metal in your eyes? No Have you had a colonoscopy in the last 30 days? No On dialysis? No Do you have any dermals or body piercing's? No or ? Do you wear an insulin pump or diabetic monitor? no Jenna Bird RT (R) documented in this encounter Plan of Treatment Upcoming Encounters Date Type Department Care Team (Late st Contact Info) Description 08/05/2023 7:00 AM EDT Imaging Radiology [facility] [address] [facility] [place] [phone] 09/09/2023 8:00 AM EDT Office Visit Interventional [facility] Center, [facility] [address] [place] [address] Ronel Beebe PA-C [address] [place] [address] Scheduled Procedures Name Priority Associated Diagnoses Date/Ti me COLONOSCOPY FLEXIBLE PROXIMA L DIAGNOSTIC Recall Screening for colon cancer Health Maintenance Due Date Last Done Comments HIV Screening 1985 Hepatitis C Screening 02/27/1988 Hepatitis B (1 of 3 - 19+ 3-dose series) 1989 Cologuard 2015 Fecal Occult Blood Test 2015 Sigmoidoscopy 2015 Depression Screening 05/10/2018 05/10/2017 DTaP,Tdap,and Td Vaccines (2 - Td or Tdap) 05/31/2022 05/31/2012 COVID-19 Vaccine ( season) 2022 01/15/2021, 05/02/2020, 04/11/2020 Influenza Vaccine (FLU shot) (Season Ended) 2023 11/23/2021, 12/04/2020, 12/04/2020 Diabetes Screening 05/21/2025 05/21/2022, 1 , 06/07/2012, Additional history exists Lipid Panel 05/22/2027 05/21/2022, 1009/2020, 06/07/2012, Additional history exists Colonoscopy 05/20/2031 05/19/2021, 05/19/2021 Colorectal Cancer Screening 05/20/2031 Zoster Vaccines Completed 02/11/2021, 12/04/2020 GARDASIL-HPV IMMUNIZATION SERIES Aged Out No longer eligible based on [...]
--- OUTSIDE RECORDS SUMMARY | 2024-01-10 21:33 | External Medical Summary | Summary of Care ---
Author Name Unknown Organization [facility] Address [address] [place] [address] Phone [phone] Care Team Providers Care Hose Tubing Backer Name Role Phone Unavailable Primary Care Provider Unavailabl e Reason for Referral * Evaluate & Treat - Unlimited Visits (Within 10 days (routine)) - Pending Review Specialty Diagnoses / Procedures Referred By Tati de anda Referred To Contact Dermatology Diagnoses Skin lesion Sivan Ceballos DO [address] [place] [address] Referral ID Status Reason Start Date Expiration Date Visits Requested Visits Authorized [id number] Pending Review Specialty Services Required 07/14/[phone] Question Answer Referral Priority Within 10 days (routine) Where should this appointment be scheduled? [facility] Are you referring the patient for Mohs Surgery and have a current positive skin cancer biopsy result? No What is the reason for the patient referral? Rash/Skin Check/Eval of Lesion or Mole Reason for Visit * Reason Onset Date Comments Follow Up 07/14/2023 Encounter Details Date Type Department Care Team (Late st Contact Info) Description 07/14/2023 Telephone Family Practice [facility] [address] [place] [address] Sivan Ceballos DO [address] [place] [address] Follow Up Allergies No known active allergiesdocumented as of this encounter (statuses as of 07/15/2023) Medications Medication Sig Dispensed Refills Start Date End Date Status predniSONE 20 MG Oral Tablet (Deltasone)Indications :Acute right-sided low back pain with right-sided sciatica,Paresthesias, Hip pain, right Take 3 tabs for 3 days, 2 tabs for 3 days, 1 tab for 3 days, 1/2 tab for 3 days 20 Tablet 0 05/31/2023 Active documented as of this encounter (statuses as of 07/15/2023) Active Problems Problem Noted Date Diagnosed Date Onychomycosis 05/19/2022 ADVANCE DIRECTIVE INFORMATION 07/17/2005 Overview: Yes-advised to bring copy to be scanned into EMR documented as of this encounter (statuses as of 07/15/2023) Resolved Problems Problem Noted Date Diagnosed Date Resolved Date Acute sinusitis 08/18/2012 06/26/2014 documented as of this encounter (statuses as of 07/15/2023) Immunizations Name Administration Dates Next Due COVID-19 mRNA, LNP-s, No Pre serve, 2-Dose Series (Hydrostor) 01/15/2021,05/02/2020,04/11/2020 HEP A - Hepatitis A (Adult [...] encounter Miscellaneous Notes * Telephone Encounter - Carmen Monge OSA - 07/15/2023 11:05 AM EDT Called patient, left message to return call. * Telephone Encounter - Sivan Ceballos DO - 07/14/2023 1:55 PM EDT Derm recommending in person eval Referral placed documented in this encounter Plan of Treatment Upcoming Encounters Date Type Department Care Team (Late st Contact Info) Description 08/05/2023 7:00 AM EDT [address] [address] Scheduled Procedures Name Priority Associated Diagnoses Date/Ti me COLONOSCOPY FLEXIBLE PROXIMA L DIAGNOSTIC Recall Screening for colon cancer Scheduled Referrals Name Type Priority Associated Diagnoses Orde r Schedule DERMATOLOGY REFERRAL OP Referral Within 10 days (routine) Skin lesion Ordered: 07/14/2023 Health Maintenance Due Date Last Done Comments [...] as of this encounter Visit Diagnoses Diagnosis Skin lesion- Primary Unspecified disorder of skin and subcutaneous tissue documented in this encounter
--- OUTSIDE RECORDS SUMMARY | 2024-01-11 04:27 | External Medical Summary ---
Author Name Unknown Address Unknown Organization [id number] [address] [place] [address] Laboratory Report Ordering Provider Test Date Status SARMAD JUNE 01/10/2024 11:22:33 Final Observation Date Value Abnormality Reference (Units ) Status BUN 01/10/2024 11:22:33 17 6-20 (mg/dL) Final Creatinine 01/10/2024 11:22:33 1.2 0.6-1.2 (mg/dL) Final Glomerular filtration rate/1.73 sq M.predicted [Volume Rate/Area] in Serum, Plasma or Blood by Creatinine-based formula (CKD-EPI) 01/10/2024 11:22:33 70 >=60 (mL/min) Final eGFR is calculated based on the CKD-EPI 2020 equation. Sodium 01/10/2024 11:22:33 139 135-146 (m mol/L) Final Potassium 01/10/2024 11:22:33 4.6 3.5-5.1 (m mol/L) Final Cl 01/10/2024 11:22:33 100 98-107 (mm ol/L) Final CO2 01/10/2024 11:22:33 28 22-32 (mmo l/L) Final Anion gap 01/10/2024 11:22:33 11 7-15 (mmol /L) Final Glucose 01/10/2024 11:22:33 104 70-120 (mg /dL) Final Albumin 01/10/2024 11:22:33 4.3 3.8-5.0 (g /dL) Final AST (Aspartate aminotransferase) 01/10/2024 11:22:33 26 10-50 (U/L) Fin al Alk Phos 01/10/2024 11:22:33 60 35-130 (U/ L) Final Bilirubin, Total 01/10/2024 11:22:33 1.4 Above high no rmal <=1.2 (mg/dL) Final Calcium 01/10/2024 11:22:33 9.9 8.4-10.2 ( mg/dL) Final Protein 01/10/2024 11:22:33 6.8 6.0-8.3 (g /dL) Final ALT (Alanine aminotransferase) 01/10/2024 11:22:33 21 10-50 (U/L) Bi ames Performing Location [facility] [address] [facility] [address]
[2024-01-11 06:59] LABS: Hemoglobin 16.1 g/dl (14.0-18.0); Mean Corpuscular Hgb Conc 35.8 g/dL (32.0-36.0); Mean Corpuscular Volume 95.1 fL (80.0-100.0); Mean Platelet Volume 10.1 fL (9.4-12.4); Platelet Count 256 K/uL (130-400); RDW Coefficient of Variation 12.1 % (11.5-14.5); RDW Standard Deviation 42.9 fL (36.4-46.3); Red Blood Count 4.73 M/uL (4.70-6.10); White Blood Count 7.27 K/ul (4.8-10.8)
[2024-01-11 07:06] LABS: Estimated Average Glucose 108 mg/dl; Hemoglobin A1C 5.4 % (4.5-5.6)
--- NOTE | 2024-01-11 07:16 | Hospitalist Progress Note ---
Date of Service January 11, 2024 Assessment & Plan (1) Complete heart block: (2) Appendicolith: Plan Mr. Gross is a 53 year old male with appendicolith undergoing eval for elective removal who presented to ED due to findings of complete heart block on preopertive EKG. Patient without any symptoms. Lyme negative. Patient underwent dual chamber pacemaker placement 01/10 and doing well postoperatively. #Complete heart block s/p pacemaker placement ECHO 60-65% EP following: s/p pacemaker 01/10 CTM postoperatively Left arm sling #appendicolith: -History of such, scheduled with outpatient general surgery, Dr. Estrada for future appendectomy on 01/23. -No acute abdominal complaints DVT ppx: scds, ambulatory Lines: PIV x 2 FEN/GI :Heart healthy CODE: Full Dispo: From home, likely to remain in the hospital x 1-2 days Admission and Anticipated Discharge Date Admission Date: January 10, 2024 Subjective Evaluated post-operatively, reports mild discomfort but overall stable at this time Denies any chest pain, lightheadedness or other acute concerns Physical Exam Constitutional: WD/WN, vitals as above Respiratory: normal respiratory effort, lungs clear to auscultation Cardiovascular: RRR, no murmur, no edema Chest (Breasts): Additional Comments: surgical site with clean dressing no strikethrough Results & Data Results & Data Vital Signs (Past 12 Hours) Vital Signs Temp Pulse Pulse Resp BP Pulse Ox O2 Del Method 01/11/24 03:04 36.4 C L 49 L 18 123/78 95 Room Air 01/10/24 23:10 37.1 C 44 L 18 159/88 H 92 Room Air 01/10/24 23:00 76 01/10/24 19:56 36.9 C 54 L 18 156/87 H 94 Room Air Laboratory Results Short CBC 01/10/24 01/11/24 Range/Units 13:11 06:33 WBC 8.94 7.27 (4.8-10.8) K/ul Hgb 16.6 16.1 (14.0-18.0) g/dl Hct 46.8 45.0 (42.0-52.0) % Plt Count 267 256 (130-400) K/uL BMP 01/10/24 13:11 Sodium 138 Potassium 4.2 Chloride 101 Carbon Dioxide 29 BUN 15 Creatinine 1.16 Glucose 115 H Calcium 9.6 Liver Function 01/10/24 Range/Units 13:11 Total Bilirubin 1.7 H (0.2-1.0) mg/dl AST 22 (13-39) U/L ALT 19 (7-52) U/L Alkaline Phosphatase 52 (34-104) U/L Albumin 4.3 (3.4-5.0) gm/dl Medications Administered Home Medications Medication Instructions Recorded Confirmed Last Taken Fish Oil 1 cap PO DIRECTED 01/10/24 01/10/24 Unknown
[2024-01-11 07:18] LABS: BUN Creatinine Ratio 12.3 (10-20); Calcium 9.2 mg/dl (8.6-10.3); Chol HDL Ratio 3.9 (0-5); Creatinine Clr Calc Pharmacy 83.6 ml/min; Magnesium 1.9 mg/dl (1.7-2.4); Potassium 4.2 mmol/L (3.5-5.1)
--- NOTE | 2024-01-11 08:46 | Pre Anesthesia Assessment ---
Date of Service January 11, 2024 Pre Sedation Assessment Vital Signs Temp Pulse Pulse Resp BP BP Pulse Ox 01/11/24 07:28 36.8 C 50 L 20 144/88 H 95 01/11/24 03:04 36.4 C L 49 L 18 123/78 95 01/10/24 23:10 37.1 C 44 L 18 159/88 H 92 01/10/24 23:00 76 01/10/24 19:56 36.9 C 54 L 18 156/87 H 94 01/10/24 18:39 137/85 01/10/24 16:20 45 L 01/10/24 15:59 36.4 C L 55 L 18 166/101 H 98 01/10/24 15:04 46 L 17 151/98 H 97 01/10/24 13:38 51 L 22 134/98 96 01/10/24 13:32 50 L 01/10/24 13:12 98 01/10/24 12:57 36.5 C 56 L 20 161/97 H 93 O2 Del Method 01/11/24 07:28 Room Air 01/11/24 03:04 Room Air 01/10/24 23:10 Room Air 01/10/24 23:00 01/10/24 19:56 Room Air 01/10/24 18:39 01/10/24 16:20 01/10/24 15:59 Room Air 01/10/24 15:04 Room Air 01/10/24 13:38 Room Air 01/10/24 13:32 01/10/24 13:12 Room Air 01/10/24 12:57 Room Air Cardiovascular + bradycardic Respiratory normal respiratory effort, lungs clear to auscultation Pre-Sedation Airway Assessment Smoking Status: Never smoker Hx Sleep Apnea: No Short, Thick Neck: No Thyromental Distance: > or= 3.5 Finger Breadths Oral Cavity: + WNL Mallampati Class: IV ASA: ASA4 NPO Status Date of Last Intake of Fluids: 01/10/24 Date of Last Intake of Solid Food: 01/10/24 Procedure Planning Contraindications for Sedation: none Current Medications Reviewed: Yes Notes The planned sedation has been discussed with the patient. Informed Consent was obtained. I have identified the patient, determined the appropriateness of sedation and have assessed the patient immediately prior to the procedure. All medicine(s) and interventions are by my order.
--- NOTE | 2024-01-11 08:46 | History & Physical Bridge Note ---
Date of Service January 11, 2024 History & Physical Bridge Note I have examined the patient, reviewed the History & Physical and in the interval since the performance of the History & Physical I have noted the following changes of clinical significance:pt presented with CHB with underlying left bundle branch block; he was recommended a pacemaker prior to hospital discharge; i discussed the procedure and potential risks with the pt and he expressed an understanding and consents signed.
[2024-01-11] MEDS: BUPIVACAINE 0.25% PF 30 ML VIAL ONE (09:16)
[2024-01-11] MEDS: WATER, STERILE FOR INJ 10 ML VIAL ONE (09:17)
[2024-01-11] MEDS: LIDOCAINE 1% LOCAL 20 ML VIAL ONE (09:17)
[2024-01-11] MEDS: VANCOMYCIN HCL 1000MG/20ML VIAL ONE (09:17)
[2024-01-11] MEDS: ceFAZolin 330 MG/ML 1 GM VIAL ONE (09:17)
[2024-01-11] MEDS: fentaNYL citrate PF 100 MCG/2 ML VIAL ONE (10:20)
[2024-01-11] MEDS: MIDAZOLAM HCL 5 MG/ML 1 ML VIAL ONE (10:33)
--- NOTE | 2024-01-11 10:39 | Post Anesthesia Assessment ---
Date of Service January 11, 2024 Post Sedation Assessment Vital Signs Temp Pulse Pulse Resp BP BP Pulse Ox 01/11/24 07:28 36.8 C 50 L 20 144/88 H 95 01/11/24 03:04 36.4 C L 49 L 18 123/78 95 01/10/24 23:10 37.1 C 44 L 18 159/88 H 92 01/10/24 23:00 76 01/10/24 19:56 36.9 C 54 L 18 156/87 H 94 01/10/24 18:39 137/85 01/10/24 16:20 45 L 01/10/24 15:59 36.4 C L 55 L 18 166/101 H 98 01/10/24 15:04 46 L 17 151/98 H 97 01/10/24 13:38 51 L 22 134/98 96 01/10/24 13:32 50 L 01/10/24 13:12 98 01/10/24 12:57 36.5 C 56 L 20 161/97 H 93 O2 Del Method 01/11/24 07:28 Room Air 01/11/24 03:04 Room Air 01/10/24 23:10 Room Air 01/10/24 23:00 01/10/24 19:56 Room Air 01/10/24 18:39 01/10/24 16:20 01/10/24 15:59 Room Air 01/10/24 15:04 Room Air 01/10/24 13:38 Room Air 01/10/24 13:32 01/10/24 13:12 Room Air 01/10/24 12:57 Room Air Recovery Score Activity: Moves 4 extremities Respiration: Deep Breath/Cough Circulation: +/-20% PreAnes Value Consciousness: Fully Awake Oxygen Saturation: > 92% On Room Air Discharge Sedation Level of Care: Fast Track Phase II Post Sedation Plan On clinical assessment, the patient appears to have tolerated the sedation without complications. Patient is recovering as anticipated. Patient will continue to be monitored by nursing and may be discharged when sedation discharge criteria are met per below protocol. Upon Completions of procedure up to 15 minutes continue every 5 minute vital signs and the P.A.R. score; then discharge to a Phase I or Fast Track to Phase II per the following guidelines: * Discharge Patient to appropriate Phase II area if PAR is 8 or greater or return to pre- procedure baseline. The post - procedure orders will be as directed. * If PAR score is less than 8 or not return to pre-procedure baseline then patient will follow Phase I monitoring till PAR is reached for Phase II. The Phase I may be done in procedure room or may call to secure a Phase I area. * If naloxone or flumazenil are used for reversal, hold in Phase I for continued monitoring from when last reversal dose was given for a minimum of 60 minutes or longer pending the nurse and/or physician discretion of patient condition before discharge to Phase II. Please call the Sedation Physician to re-evaluate and complete post-note for discharge to Phase II area. Do NOT discharge from procedure sedation or Phase 1 until post- sedation evaluation note is complete by procedure /sedation MD Sedation Discharge Instructions to be given to the patient at discharge to home.
--- NOTE | 2024-01-11 10:51 | Operative Report ---
Post Operative Report DICTATED BY:Jamaica Yarbrough D.O. DATE OF PROCEDURE: 01/11/2024. PREOPERATIVE DIAGNOSES: Complete heart block POSTOPERATIVE DIAGNOSIS: Same PROCEDURE: A dual-chamber rate responsive permanent pacemaker along with a peripheral venogram under fluoroscopic guidance. SURGEON: Jamaica Yarbrough DO ASSISTANTS: None. ANESTHESIA: Monitored conscious sedation administered under my supervision by Brissa Worthington. Start time 09:15, end time 10:37, a total of 4 mg of Versed and 100 mcg of fentanyl. INTRAVENOUS FLUIDS: 0 mL. CONTRAST: 14 mL. ANTIBIOTICS: 2 grams of Ancef. ADDITIONAL MEDICATIONS: None BLOOD LOSS: 100 mL. URINE OUTPUT: Not applicable. SPECIMENS: None. FINDINGS: See below. DRAINS: None. COMPLICATIONS: None. CONDITION: Stable. INDICATIONS: This is a 53-year-old gentleman who has a no past medical history. He was sent into [facility] due to a pre-op appendectomy ECG finding CHB. He was recommended a ppm prior to hospital discharge. CONSENT: Consent was obtained prior to the patient going into the electrophysiology lab. The patient was informed of the risks, benefits, and alternatives to the procedure. Risks include, but not limited to, sudden cardiac , cardiac arrhythmias, cerebrovascular accident, myocardial infarction, injury to his blood vessels, chamber of the heart and lung, bleeding and infection. The patient understood these risks and agreed to the procedure as planned. Informed consent was obtained. DESCRIPTION OF PROCEDURE: The patient was brought into electrophysiology lab in a fasting state. He was connected to continuous cardiac monitoring. A timeout was performed to ensure the patient's identity and procedure correctly. He was prepped and draped in the left infraclavicular space in normal surgical standard fashion. Monitored conscious sedation was given throughout the procedure for the patient's comfort level. Strum precautions were maintained throughout the procedure. Prophylactic antibiotics were given prior to incision. A 20 mL of 1% lidocaine and bupivacaine mixture were given in the left deltopectoral groove. An incision was made in the left deltopectoral groove. Blunt dissection was performed down to the pectoralis muscle. Then, using blunt dissection over the pectoralis muscle within the pectoral fascia, a pacemaker pocket was created. Then, a peripheral venogram was performed to identify the axillary vein. Venous axillary access was obtained through a needlestick witho ut any problems. A guidewire was inserted without any resistance. A 9-Malaysian sheath was inserted over the guidewire without any resistance. Dilator was removed and a second guidewire was inserted through the sheath to allow for retained venous access. A 6 congolese sheath was inserted over one of the guidewires. The guidewire and dilator were removed. Then the right atrial pacing lead was temporarily placed in the RV apex to have back up pacing while placing the Left bundle lead. Then a 9 Malaysian sheath was inserted over the retained guidewires. The guidewire and dilator were removed. Then, the CPS Commercial Airline Pilot 3D medium sheath was inserted through the 9-Malaysian sheath over a Glidewire into the right ventricle. The Glidewire and dilator were removed. Then, the left bundle lead was advanced through the sheath and intracardiac electrogram His bundle recordings were estimated as I did not see a clear HIS when the camera was in HADDAD 10. Once I had an idea where the His bundle is, I then moved the camera to HADDAD 30 and marked where the His bundle area was estimated on my fluoroscopy screen. I came down about 2 cm from this in a line that would extend out to the apex and then started coming on pacing. Once I found an area where I had a nice W formed pace complex in my lead V1, I then moved the camera to AMHARIC 30. Then the helix was extended into the septum. Then the helix locking tool was placed. Then the lead was screwed further into the septum while pacing by giving slow clockwise turns. The paced complex changed to a nice R' in V1 and the pacing stim to peak QRS in V6 was good. I then gave contrast through the sheath to see how far the lead was into the septum and then I slit the CPS Commercial Airline Pilot 3D medium sheath under fluoroscopic guidance and left the 9-Malaysian sheath in while I positioned the right atrial lead. The RA lead screw was retracted from the RV apex and positioned into the RA appendage under fluoroscopic guidance. There was adequate pacing and sensing thresholds and no diaphragmatic stimulation with high output pacing. The 6- Malaysian sheath was peeled away and the lead was fixated to the pectoralis muscle using 0 silk suture. However after placing the RA lead the left bundle lead had dislodged. So I went back in with a CPS network security officer 3D medium sheath but was having difficulty advancing the lead even using a stiffer stylet. I then swapped out for a large curved 3D CPS Commercial Airline Pilot sheath but was not having much success. So I went back to a medium curved and bent the secondary curve slightly more and was able to advance the lead into the left bundle area and have a nice paced complex and thresholds. The 9-Malaysian sheath around the left bundle lead was peeled away and the lead was fixated to pectoralis muscle using 0 silk suture. The pocket was flushed with copious amounts of vancomycin and saline wash and inspected for hemostasis. The leads were then attached to the pulse generator making sure the pins were in appropriate position, passed set screws, and set screws were all tightened. Pulse generator was then placed in the pocket, making sure the leads were lying flat beneath the device. The incision was closed in a 3-layer fashion using 2-0 Vicryl interrupted suture, followed by 3-0 Vicryl interrupted suture, followed by 4-0 Monocryl running stitch. Then a primaseal dressing was placed EQUIPMENT: 1. Pulse generator is a [employer] MRI Model Number [id number] SN: [id number]. 2. Right atrial lead, [employer] SJM Tendril STS 8TC SN: [id number] 3. Left bundle lead, [employer]ons SJM Tendril STS 8TC SN: [id number] INTRAPROCEDURAL FINDINGS: 1. Right atrial lead, P waves 3.2 millivolts, impedance 630 ohms, threshold 1.1 volts at 0.4 milliseconds. 3. Left bundle lead, R waves 11.5 millivolts, impedance 780 ohms, threshold 2.0 volts at 0.4 milliseconds. FINAL MEASUREMENTS THROUGH THE DEVICE: 1. Right atrial lead, P waves > 5millivolts, impedance 610 ohms, threshold 0.5 volt at 0.4 milliseconds. 2. Left bundle lead, R waves 9.2 millivolts, impedance 760 ohms, threshold 0.5 volts at 0.4 milliseconds. FINAL PARAMETERS: DDD 60/150, right atrial amplitude 3.5 volts, pulse width 0.4 milliseconds, sensitivity 0.5 millivolts. Left bundle lead amplitude 3.5 volts, pulse width 0.4 milliseconds, sensitivity 2 millivolts. IMPRESSION: Successful dual chamber rate responsive permanent pacemaker under fluoroscopic guidance along with peripheral venogram, all under fluoroscopic guidance secondary to complete heart block PLAN: Monitor the patient post-procedure. A 12-lead ECG, chest x-ray. He is not to lift the left elbow or left shoulder for 1 month. He cannot lift more than 10 pounds with the left arm for 2 weeks. He is to keep the dressing on and dry until his wound check in 1-2 weeks
--- NOTE | 2024-01-11 13:23 | XRay Report ---
XR chest 1V portable HISTORY: 53 years-old Male s/p ppm ensure no PTX status post placement of a left subclavian pacer COMPARISON: 01/10/2024 TECHNIQUE: AP view the chest FINDINGS: Status post placement of a dual lead left subclavian pacer. Cardiac silhouette is mildly enlarged. No pneumothorax, pleural effusion or lobar airspace consolidation. No overt pulmonary edema. IMPRESSION: Status post placement of a dual-lead left subclavian pacer. No postprocedural pneumothora x identified. ACT 112: Negative or not required by law. The above report was generated using voice recognition software. It may contain grammatical, syntax o r spelling errors. Electronically signed by: Ray Solo M.D. 01/11/2024 1:22 PM
[2024-01-11] MEDS: ACETAMINOPHEN 325 MG TAB PO PRN (14:05)
--- NOTE | 2024-01-11 16:41 | Cardiology Progress Note ---
Date of Service January 11, 2024 Assessment & Plan (1) Complete heart block: Plan Patient is a 53-year-old male who presented routinely for EKG prior to planned surgery. Study demonstrated third-degree AV block with complete A-V dissociation. Left ventricular escape rhythm with left bundle branch block configuration at 45 to 50 bpm Discussed findings in detail with patient Echocardiogram pending Will likely require dual-chamber pacemaker Electrophysiology contacted 01/11/2024 No culprit source of high degree AV block discerned. Third-degree AV block persisted overnight on telemetry with intermittent right bundle and left bundle branch block Underwent dual-chamber pacemaker insertion today uneventfully No postprocedural arrhythmia Maintain telemetry overnight with anticipated discharge in a.m. Admission and Anticipated Discharge Date Admission Date: January 10, 2024 Subjective Patient was seen and examined, events of the day noted. Dual-chamber pacemaker placed earlier this morning. No complications with procedure Mild insertion site tenderness but otherwise no complaints. No dizziness lightheadedness or shortness of breath. No tachyarrhythmias. No chest pain. Chest x-ray post procedure without pneumothorax or abnormality Review of Systems Review of Systems: All systems reviewed & are unremarkable except as noted in Subjective Physical Exam Constitutional: WD/WN, vitals as above Eyes: PERRL, conjunctivae normal, anicteric sclerae ENMT: external ear and nose normal, oropharynx normal Neck: trachea midline, no thyromegaly Respiratory: normal respiratory effort, lungs clear to auscultation Cardiovascular: Rate/Rhythm: regular rate and regular rhythm Heart Sounds: normal S1 and normal S2; no gallop and no murmur Palpation: normal PMI Vessels: normal carotid upstroke and radial pulses present; no JVD and no carotid bruit Extremities: no edema Chest (Breasts): Chest: + pacemaker (Incision site and bandage clean) Gastrointestinal (Abdomen): normal bowel sounds, soft, nontender, no hepatosplenomegaly Musculoskeletal: no cyanosis or clubbing, extremities motor strength 5/5 Skin: no rashes, warm and dry Neurologic: PERRL, EOMI, accommodation nl, no face palsy, no dysarthria Psychiatric: A+Ox3, euthymic affect Results & Data Vital Signs (Past 12 Hours) Vital Signs Temp Pulse Resp BP Pulse Ox O2 Del Method 01/11/24 15:31 36.3 C L 83 18 134/87 94 Room Air 01/11/24 11:29 37.1 C 85 18 147/89 H 95 Room Air 01/11/24 11:00 78 16 133/89 98 Room Air 01/11/24 10:45 74 16 130/89 98 Room Air 01/11/24 07:28 36.8 C 50 L 20 144/88 H 95 Room Air Laboratory Results Laboratory Results - last 24 hr 01/11/24 06:33 WBC 7.27 RBC 4.73 Hgb 16.1 Hct 45.0 MCV 95.1 MCH 34.0 MCHC 35.8 RDW Std Deviation 42.9 RDW Coeff of Paulette 12.1 Plt Count 256 MPV 10.1 Sodium 140 Potassium 4.2 Chloride 106 Carbon Dioxide 28 Anion Gap 6 BUN 15 Creatinine 1.22 Est Cr Clr Drug Dosing 83.6 eGFR 70.89 BUN/Creatinine Ratio 12.3 Glucose 105 H Estimat Average Glucose 108 Hemoglobin A1c 5.4 Calcium 9.2 Magnesium 1.9 Triglycerides 92 Cholesterol 175 LDL Cholesterol, Calc 112 VLDL Cholesterol, Calc 18 HDL Cholesterol 45 Cholesterol/HDL Ratio 3.9
[2024-01-12 07:37] VITALS: BP 151/92
--- NOTE | 2024-01-12 10:45 | Cardiology Progress Note ---
Date of Service January 12, 2024 Assessment & Plan (1) Complete heart block: Plan Patient is a 53-year-old male who presented routinely for EKG prior to planned surgery. Study demonstrated third-degree AV block with complete A-V dissociation. Left ventricular escape rhythm with left bundle branch block configuration at 45 to 50 bpm Discussed findings in detail with patient Echocardiogram pending Will likely require dual-chamber pacemaker Electrophysiology contacted 01/11/2024 No culprit source of high degree AV block discerned. Third-degree AV block persisted overnight on telemetry with intermittent right bundle and left bundle branch block Underwent dual-chamber pacemaker insertion today uneventfully No postprocedural arrhythmia Maintain telemetry overnight with anticipated discharge in a.m. There is normal left ventricular wall thickness. 01/12/2024 Patient doing well. Pacemaker functioning appropriately 1. Complete heart block with ventricular escape rhythm: Pacemaker insertion and doing well. Patient may be discharged to home today. [facility] [address] cardiology arranging wound check and outpatient follow-up 01/12/2024 Admission and Anticipated Discharge Date Admission Date: January 10, 2024 Subjective Patient seen and examined. Telemetry reviewed. Minor surgical discomfort at site of pacemaker insertion No other acute complaints Pacer interrogation today finds it functioning normally Telemetry atrial sensed ventricular paced rhythm in pattern consistent with septal pacing Review of Systems Review of Systems: All systems reviewed & are unremarkable except as noted in Subjective Physical Exam Constitutional: WD/WN, vitals as above Eyes: PERRL, conjunctivae normal, anicteric sclerae ENMT: external ear and nose normal, oropharynx normal Neck: trachea midline, no thyromegaly Respiratory: normal respiratory effort, lungs clear to auscultation Cardiovascular: Rate/Rhythm: regular rate and regular rhythm Heart Sounds: normal S1 and normal S2; no gallop and no murmur Palpation: normal PMI Vessels: normal carotid upstroke and radial pulses present; no JVD and no carotid bruit Extremities: no edema Chest (Breasts): Chest: + pacemaker (Incision site and bandage clean) Gastrointestinal (Abdomen): normal bowel sounds, soft, nontender, no hepatosplenomegaly Musculoskeletal: no cyanosis or clubbing, extremities motor strength 5/5 Skin: no rashes, warm and dry Neurologic: PERRL, EOMI, accommodation nl, no face palsy, no dysarthria Psychiatric: A+Ox3, euthymic affect Results & Data Vital Signs (Past 12 Hours) Vital Signs Temp Pulse Pulse Resp BP Pulse Ox O2 Del Method 01/12/24 07:36 37.0 C 78 16 151/92 H 95 Room Air 01/12/24 07:19 73 01/12/24 03:04 150/82 H 01/12/24 02:45 36.7 C 67 20 99 Room Air
--- NOTE | 2024-01-12 11:20 | Electrocardiogram Report ---
Test Reason : Blood Pressure : */* mmHG Vent. Rate : 48 BPM Atrial Rate : 62 BPM P-R Int : * ms QRS Dur : 126 ms QT Int : 476 ms P-R-T Axes : 60 0 -5 degrees QTcB Int : 425 ms Sinus rhythm with A-V dissociation and Wide QRS rhythm Escape rhythm could be junctional with aberrant conduction or accelerated ventricular Right bundle branch block Abnormal ECG No previous ECGs available Confirmed by Ronnie Faust ([id number]) on 01/12/2024 11:20:05 AM Referred By: REFERRED SELF Confirmed By: Ronnie Faust
[2024-01-12 11:27] VITALS: PULSE 79; RESP 18; TEMP 98.2; O2SAT 92
--- NOTE | 2024-01-12 11:27 | Discharge Summary ---
Discharge Summary Date of Service January 12, 2024 Principal Dx & Hospital Course #1 = Principal Diagnosis (1) Complete heart block: (2) Appendicolith: Plan Mr. Gross is a 53 year old male with appendicolith undergoing evaluation for elective removal who presented to ED due to findings of complete heart block on preoperative EKG. Patient without any symptoms. Lyme negative. Patient underwent dual chamber pacemaker placement on 01/11/24 and doing well postoperatively. Complete heart block s/p pacemaker placement ECHO with EF 60-65%, normal left ventricular wall thickness, no regional wall motion abnormalities, septal wall motion was consistent with conduction abnormality, No significant valvular disease, no pulmonary hypertension. Electrophysiology following: s/p pacemaker 01/11/24 Cardiology also following, noted/stated the following on day of discharge: "Patient is a 53-year-old male who presented routinely for EKG prior to planned surgery. Study demonstrated third-degree AV block with complete A-V dissociation. Left ventricular escape rhythm with left bundle branch block configuration at 45 to 50 bpm... 01/12/2024: Patient doing well. Pacemaker functioning appropriately 1. Complete heart block with ventricular escape rhythm: Pacemaker insertion and doing well. Patient may be discharged to home today. [facility] cardiology arranging wound check and outpatient follow-up 01/12/2024" Left arm sling Please ensure close cardiology and EP followup after discharge Appendicolith: History of such, scheduled with outpatient general surgery, Dr. Estrada for future appendectomy on 01/23. No acute abdominal complaints PCP and General surgery followup after discharge Notes For Next Care Provider s/p pacemaker placement for complete heart block with ventricular escape rhythm on 01/10 Medication Changes From Visit None Admission HPI Per Admitting Provider This is a 53-year-old male with PMHx of intermittent abdominal pain worked up to be appendicolith and planned for future appendectomy with Dr. Estrada as outpatient, and was undergoing routine preop screening which included an EKG. Patient is found to have complete heart block with outpatient EKG and was referred to the hospital. Patient cannot recall recent tick bite or history of known Lyme's disease to have caused such. His heart rate is found to be in the low 50s in the ER here today. Patient states that he feels completely normal at this point, denies any cardiac symptoms, shortness of breath, no lightheadedness or dizziness. He is a very physically active person, participates in exercise almost once daily, strength training, stationary bike, etc. He presents after being informed via phone call to proceed to the ER due to EKG abnormality. The only medication the patient takes is a fish oil supplement. Patient denies any alcohol use except for occasionally on a weekend, no smoking or illicit drug use. He denies any recent known tick bites. Admission Exam Per Admitting Provider General: awake, alert, no apparent distress, healthy, physically fit appearing white male Head: Normocephalic, atraumatic ENT: PERRL, EOMI, no pharyngeal exudate, mucous membranes moist Chest: Clear to auscultation, on room air, no adventitious breath sounds Cardiac: Bradycardic, heart rate 51, no murmur, no JVD, normal peripheral pulses, good capillary refill Abdominal: NABS x 4 quadrants, soft, nondistended, nontender to palpation, no rebound or guarding Extremities: Normal inspection, no peripheral edema or erythema, calfs nontender to palpation Psych: Normal mood and affect Neuro: AAO x 3, strength intact bilaterally and rated 5/5, no motor deficits, speech is clear, no peripheral sensory deficits Discharge Exam General: Alert, oriented. No acute distress Psych: Appropriate mood and affect Neuro: pain noted when raising left arm currently in sling HEENT: NC/AT CV: RRR Resp: Breath sounds clear bilaterally, no increased effort of breathing Abdomen: Soft, nontender Extremities: No edema in lower extremities bilaterally. 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 No pneumothorax, pleural effusion or lobar airspace consolidation. No overt pulmonary edema. IMPRESSION: Cardiomegaly without acute process of the chest. ACT 112: Negative or not required by law. The above report was generated using voice recognition software. It may contain grammatical, syntax or spelling errors. Electronically signed by: Ray Solo M.D. 01/10/2024 1:16 PM Chest X-Ray 01/11/24 12:30 XR chest 1V portable HISTORY: 53 years-old Male s/p ppm ensure no PTX status post placement of a left subclavian pacer COMPARISON: 01/10/2024 TECHNIQUE: AP view the chest FINDINGS: Status post placement of a dual lead left subclavian pacer. Cardiac silhouette is mildly enlarged. No pneumothorax, pleural effusion or lobar airspace consolidation. No overt pulmonary edema. IMPRESSION: Status post placement of a dual-lead left subclavian pacer. No postprocedural pneumothorax identified. ACT 112: Negative or not required by law. The above report was generated using voice recognition software. It may contain grammatical, syntax or spelling errors. Electronically signed by: Ray Solo M.D. 01/11/2024 1:22 PM Pending Results Patient Have Any Pending Studies at Discharge: No Discharge Instructions Given to Patient (Per Discharging Provider) Otilio, You were admitted and had a pacemaker placed through the services of cardiology and electrophysiology. The left additional instructions for you listed below. Can continue with as needed Tylenol to help with any residual pain. In addition to following up with cardiology, please also keep close follow-up with your primary care provider. Please do not hesitate to come back to the emergency room if your symptoms worsen or return. It was a pleasure taking care of you while you were here. Total Time Total Time Spent Total Time Spent (In Minutes): 65
--- NOTE | 2024-01-13 08:47 | Electrocardiogram Report ---
Test Reason : Blood Pressure : */* mmHG Vent. Rate : 75 BPM Atrial Rate : 75 BPM P-R Int : 166 ms QRS Dur : 128 ms QT Int : 448 ms P-R-T Axes : 17 -47 10 degrees QTcB Int : 500 ms Atrial-sensed ventricular-paced rhythm Abnormal ECG When compared with ECG of 10-Jan-2024 13:06, Electronic ventricular pacemaker now present Vent. rate has increased by 27 bpm Confirmed by Esteban Wright ([id number]) on 01/13/2024 8:46:49 AM Referred By: REFERRED SELF Confirmed By: Esteban Wright
== END 2024-01-12 12:18 | disposition home or self-care (01) | DRG 244 ==
LOC: ED 12:48 → SUATTDRO 14:42 → 2S 14:42